=== PATIENT | female | born 1950 | race Caucasian/White ===

== ENCOUNTER 2016-10-23 11:29 | Observation (INO) | payer OTHER ==
[~2016-10-23] VITALS: Ht 157.5 cm; Wt 68.2 kg
[~2016-10-23 11:29] MED LIST: ASCO500T16 PO; CYAN3INJ INJ; LOSA50TA6 PO; METH10CO2 PO; OMEG-21 PO; OMEP20CA9 PO; OXYC-59 PO; PARO10TA PO; VITA400C3 PO
[2016-10-23 11:35] VITALS: Ht 157.5 cm; Wt 68.2 kg
[2016-10-23] MEDS ORDERED: OXY/15 PO (11:52)
[2016-10-23] MEDS ORDERED: VALS-58 PO (11:52)
[2016-10-23] MEDS ORDERED: RANI150T2 PO (11:52)
--- NOTE | 2016-10-23 12:42 | EMERGENCY ROOM VISIT NOTE ---
History Report prepared by Brandon: Davin Coates Under the Supervision of: Dr. Eugene Palacio M.D. First contact with patient: 12:30 Chief Complaint: HYPERTENSION Stated Complaint: HYPERTENSION History of Present Illness The patient is a 66 year old female who presents to the Emergency Room with complaints of persistent hypertension for the past three days. The patient has a history of hypertension for which she takes Atenolol. She has noticed that it has been elevated and difficult to control for three days. The patient also complains of a headache. The patient notes that this morning she was having trouble lifting her left arm secondary to weakness. She also notes that there was a tingling sensation in the arm and it felt heavy. Her left arm is back at baseline. She denies any problems with the right arm or her legs. She has not had any problems ambulating. The patient called an ambulance this morning when she could not control her blood pressure. The patient denies any recent falls or trauma. She denies any history of strokes. She does however have a family history of stroke that led to deaths of her mother, father, and brother. She is not on any blood thinners. The patient denies fevers, chest pain, shortness of breath, urinary symptoms or incontinence. Source of History: patient Onset: three days Position: other (cardiovascular) Quality: other (hypertensive) Timing: other (persistent) Associated Symptoms: + headache, + numbness, + weakness, No SOB, No chest pain, No fevers, No urinary symptoms Review of Systems See HPI for pertinent positives & negatives. A total of 10 systems reviewed and were otherwise negative. Past Medical & Surgical Medical Problems: (1) Chronic neck pain (2) Dyslipidemia (3) GERD (gastroesophageal reflux disease) (4) HTN (hypertension) (5) Panic disorder Surgical Problems: (1) History of appendectomy (2) History of carpal tunnel surgery (3) History of cholecystectomy (4) History of hysterectomy (5) S/P cervical spinal fusion Family History Cancer Hypertension Stroke Social History Smoking Status: Former Smoker Alcohol Use: none Marital Status: Housing Status: lives alone Occupation Status: unemployed Current/Historical Medications Scheduled Ascorbic Acid (Ascorbic Acid), 500 MG PO DAILY Atenolol (Tenormin), 50 MG PO BID Cholecalciferol (Vitamin D3), 1 TAB PO DAILY Cyanocobalamin (Vitamin B12 500MCG), 500 MCG PO DAILY [place]-3 Fatty Acids (Fish Oil), 1 CAP PO DAILY Omeprazole (Prilosec), 40 MG PO DAILY Paroxetine Hcl (Paxil), 10 MG PO DAILY Valsartan (Valsartan), 160 MG PO DAILY Vitamin E (Vitamin E 400 Iu), 400 INTER.UNIT PO DAILY Scheduled PRN Oxycodone/Acetaminophen 10MG/325MG (Percocet 10MG/325MG), 1 TAB PO Q6H PRN for Pain Allergies Coded Allergies: Propoxyphene (Verified Allergy, Intermediate, TACHYCARDIA, 10/23/16) Physical Exam Vital Signs Date Time Temp Pulse Resp B/P Pulse Ox O2 Delivery O2 Flow Rate FiO2 10/23/16 16:48 95 20 154/74 94 Room Air 10/23/16 16:06 50 10/23/16 13:46 55 18 159/59 97 Room Air 10/23/16 12:07 97 Room Air 10/23/16 11:52 53 10/23/16 11:35 36.7 54 18 159/40 97 Room Air Physical Exam GENERAL: Patient is well appearing and in no acute distress. HEENT: No acute trauma, normocephalic atraumatic, mucous membranes moist, no nasal congestion, no scleral icterus. NECK: No stridor, no adenopathy, no meningismus, trachea is midline. LUNGS: No dyspnea. Clear to auscultation and equal bilaterally. No wheeze, no rhonchi. HEART: Regular rate and rhythm. No murmurs, rubs, gallops appreciated. ABDOMEN: Soft, nontender, bowel sounds positive, no masses appreciated, no peritonitis. BACK: No midline tenderness, no CVA tenderness EXTREMITIES: Normal motion all extremities, no cyanosis, no edema. NEUROLOGIC: Alert and oriented, no acute motor or sensory deficits, no focal weakness, cranial nerves grossly intact. SKIN: No rash, no jaundice, no diaphoresis. Medical Decision & Procedures ER Provider Diagnostic Interpretation: Radiology results and stated below per my review and radiologist interpretation: CHEST ONE VIEW PORTABLE CLINICAL HISTORY: HTN dyspnea COMPARISON STUDY: 04/28/2015 FINDINGS: The bones soft tissues and hemidiaphragms are normal. The cardiomediastinal silhouette is normal. The lungs are clear. The pulmonary vasculature is normal. IMPRESSION: Negative chest. Electronically signed by: Eliezer Carrington M.D. 10/23/2016 1:05 PM Dictated Date/Time: 10/23/2016 1:[address]AST CT DOSE: 537.48 mGy.cm HISTORY: Hypertension HTN, left arm paresthesia TECHNIQUE: Multiaxial CT images of the head were performed without the use of intravenous contrast. Comparison: None. Findings: The paranasal sinuses and mastoid air cells are clear. The calvarium and skull base are intact. The ventricles and sulci are within normal limits. There is no mass, hematoma, midline shift, or acute infarct. Impression: No acute intracranial abnormality. Electronically signed by: Eliezer Carrington M.D. 10/23/2016 1:47 PM Dictated Date/Time: 10/23/2016 1:42 PM Laboratory Results Test 10/23/16 12:40 10/23/16 13:17 Prothrombin Time 10.7 SECONDS (9.0-12.0) Prothromb Time International Ratio 1.0 (0.9-1.1) Activated Partial Thromboplast Time 27.1 SECONDS (21.0-31.0) Partial Thromboplastin Ratio 1.0 Estimated Average Glucose 120 mg/dl Hemoglobin A1c 5.8 % (4.5-5.6) Magnesium Level 2.0 mg/dl (1.8-2.4) Total Bilirubin 0.3 mg/dl (0.2-1) Aspartate Amino Transf (AST/SGOT) 17 U/L (15-37) Alanine Aminotransferase (ALT/SGPT) 19 U/L (12-78) Alkaline Phosphatase 86 U/L (45-117) Total Creatine Kinase 74 U/L (26-192) Creatine Kinase MB 1.3 ng/ml (0.5-3.6) Creatine Kinase MB Ratio 1.8 (0-3.0) Troponin I < 0.015 ng/ml (0-0.045) Total Protein 7.5 gm/dl (6.4-8.2) Albumin 3.7 gm/dl (3.4-5.0) Globulin 3.8 gm/dl (2.5-4.0) Albumin/Globulin Ratio 1.0 (0.9-2) Bedside Troponin I 0.000 ng/ml (0-0.045) Laboratory results as reviewed by me. Medications Administered Medications (Trade) Dose Ordered Sig/Silverio Route Start Time Stop Time Status Last Admin Dose Admin Acetaminophen (Tylenol Tab) 1,000 mg NOW STAT PO 10/23/16 13:58 10/23/16 13:59 DC 10/23/16 15:13 1,000 MG ECG Indication: weakness Rate (beats per minute): 53 Rhythm: sinus bradycardia Findings: no acute ischemic change, no ectopy ED Course 1231: The patient was evaluated in room B7. A complete history and physical exam was performed. 1350: The patient requested something for a headache. 1355: Updated the patient. She is willing to stay to rule out stroke. 1358: Tylenol 1000 mg PO. 1401: Spoke with Louise De Jesus PA-C, [facility]. The patient will be evaluated. 1422: The patient wants to go home. I discussed the risks of leaving AMA with her. She verbalized understanding. 1435: The patient now decided that she will stay Medical Decision Differential: Benign Hypertension, Hypertensive Urgency/Emergency, Cardiovascular Pathology, Endocrine, Metabolic/Electrolyte, Renal Disease, End- organ Damage, amongst other pathologies entertained. 66 yr old female arrives with complaint of hypertension, headache, left arm numbness and earlier today inability to use left arm correctly. Hypertensive here but not severely and patient is stable. She has essentially normal work- up. Her description of left arm weakness with the history multiple family members dieing of stroke makes me quite concerned. Initially patient agreeable to coming in for further evaluation, then changed her mind deciding to go home. Discussed AMA and risks and she understands. Shortly there-after patient changed her mind again and willing to come in for further evaluation. Stable, no distress, labs unremarkable, ct head negative, EKG ok, and no neuro deficits. Did have headache and thus given Tylenol. She does not have evidence of meningitis. Bring in for further work up though I feel low risk dissection. Consults Time Called: 1355 Consulting Physician: Louise De Jesus PA-C, [facility]. Returned Call: [phone]: Spoke with Louise De Jesus PA-C, [facility]. The patient will be evaluated. Impression Primary Impression: Hypertension Additional Impressions: Headache Left arm weakness Scribe Attestation The scribe's documentation has been prepared under my direction and personally reviewed by me in its entirety. I confirm that the note above accurately reflects all work, treatment, procedures, and medical decision making performed by me. Departure Information Dispostion Being Evaluated By Hospitalist Cathy Tavares M.D. (PCP) Patient Instructions My [facility] Health Problem Qualifiers Primary Impression: Hypertension Hypertension type: unspecified secondary hypertension Qualified Codes: I15.9 - Secondary hypertension, unspecified Additional Impressions: Headache Headache type: unspecified Headache chronicity pattern: acute headache Intractability: not intractable Qualified Codes: R51 - Headache
[2016-10-23 12:55] LABS: HEMATOCRIT 39.8 % (37-47); MEAN CELL VOLUME 86.5 fL (80-100); MEAN CORPUSCULAR HEMOGLOBIN 30.9 pg (25-34); MEAN CORPUSCULAR HGB CONC 35.7 g/dl (32-36); MEAN PLATELET VOLUME 9.3 fL (7.4-10.4); PLATELET COUNT 235 K/uL (130-400); WHITE BLOOD COUNT 9.49 K/uL (4.8-10.8)
--- NOTE | 2016-10-23 13:06 | DIAGNOSTIC IMAGING REPORT ---
CHEST ONE VIEW PORTABLE CLINICAL HISTORY: HTN dyspnea COMPARISON STUDY: 04/28/2015 FINDINGS: The bones soft tissues and hemidiaphragms are normal. The cardiomediastinal silhouette is normal. The lungs are clear. The pulmonary vasculature is normal. IMPRESSION: Negative chest. Electronically signed by: Eliezer Carrington M.D. 10/23/2016 1:05 PM Dictated Date/Time: 10/23/2016 1:04 PM
[2016-10-23 13:12] LABS: PROTHROMBIN TIME (PATIENT) 10.7 SECONDS (9.0-12.0)
[2016-10-23 13:18] LABS: ALT/SGPT 19 U/L (12-78); BLOOD UREA NITROGEN 10 mg/dl (7-18); CALCIUM 8.7 mg/dl (8.5-10.1); CARBON DIOXIDE 30 mmol/L (21-32); CHLORIDE 104 mmol/L (98-107); CREATININE 0.83 mg/dl (0.60-1.20); GLUCOSE 101 mg/dl (70-99); SODIUM 141 mmol/L (136-145)
[2016-10-23 13:23] LABS: ALKALINE PHOSPHATASE 86 U/L (45-117); AST/SGOT 17 U/L (15-37); CKMB/CK RATIO 1.8 (0-3.0)
--- NOTE | 2016-10-23 13:49 | DIAGNOSTIC IMAGING REPORT ---
HEAD CT NONCONTRAST CT DOSE: 537.48 mGy.cm HISTORY: Hypertension HTN, left arm paresthesia TECHNIQUE: Multiaxial CT images of the head were performed without the use of intravenous contrast. Comparison: None. Findings: The paranasal sinuses and mastoid air cells are clear. The calvarium and skull base are intact. The ventricles and sulci are within normal limits. There is no mass, hematoma, midline shift, or acute infarct. Impression: No acute intracranial abnormality. Electronically signed by: Eliezer Carrington M.D. 10/23/2016 1:47 PM Dictated Date/Time: 10/23/2016 1:42 PM
[2016-10-23] MEDS ORDERED: ACETAMINOPHEN 500 MG TAB PO STA (13:58)
[2016-10-23] MEDS ORDERED: ASPIRIN 81 MG CHEW PO STA (17:44)
[2016-10-23] MEDS ORDERED: PHARMACIST DISCHARGE MED REC CONSULT PRN (17:45)
[2016-10-23] MEDS ORDERED: NITROGLYCERIN 0.4 MG SL PER TAB CHARGE SL PRN (17:45)
[2016-10-23] MEDS ORDERED: ONDANSETRON INJ 2 MG/ML 2 ML VIAL IV PRN (17:45)
[2016-10-23] MEDS ORDERED: ACETAMINOPHEN 325 MG TAB PO PRN (17:45)
[2016-10-23] MEDS ORDERED: CYAN500T13 PO (17:54)
[2016-10-23] MEDS ORDERED: CHOL1000 PO (17:54)
[2016-10-23] MEDS ORDERED: OXYC-59 PO (17:54)
[2016-10-23] MEDS ORDERED: ATEN50TA PO (17:54)
[2016-10-23] MEDS ORDERED: IV FLUIDS COMPLETED PRN (18:00)
--- NOTE | 2016-10-23 18:30 | History and Physical ---
History & Physical Date & Time of Service: Oct 23, 2016 at 18:01 Chief Complaint: Hypertension Primary Care Physician: Cathy Gardiner M.D. History of Present Illness Source: patient This is a 66 y/o female with PMHx of HTN, Dyslipidemia and other problems as outlined below who presents to the ED c/o elevated BP for couple weeks. Pt reports that over the past couple weeks her BP has been elevated. Pt has a history of HTN. She had been taking atenolol 25 mg daily and losartan 50 mg daily however last week her PCP increased her atenolol to 50mg BID, discontinued her losartan and started valsartan 160mg daily. Pt states that her blood pressure has not been under control since she started the new regimen. The highest reading she recorded was 220/160 last night. This morning her BP was still 220/140. She began experiencing hot flashes, diaphoresis, SANCHEZ ( occipital) and blurred vision. Around 0930, pt developed acute onset L arm weakness and "heaviness" with some numbness in her fingers. Sxs were assoc with difficulty swallowing and the L side of her face feeling "heavy" but she is not sure if she had any facial droop. These sxs persisted for a few minutes before resolving completely. Pt mentions that she has chronic neck pain and frequently experiences paresthesias and referred pain to the L arm however this was different. Pt has no personal history of CVA however she has a strong family history of CVA. Her father and brother both of strokes at 55 and 40 respectively. Mother had multiple TIAs. Pt currently lives at home alone. Pt denies diplopia, chest pain, SOB, wheezing, abd pain, N/V, bowel or bladder issues, LE edema, calf pain, lightheadedness/dizziness, difficulty speaking or difficulty ambulating. In the ED, BP is elevated. Labs reviewed are unremarkable. CT head and CXR are negative. Pt is currently feeling back to her baseline. She will be admitted for further evaluation and treatment. Past Medical/Surgical History Medical Problems: (1) Chronic neck pain Status: Chronic (2) Dyslipidemia Status: Chronic (3) GERD (gastroesophageal reflux disease) Status: Chronic (4) HTN (hypertension) Status: Chronic (5) Panic disorder Status: Chronic Surgical Problems: (1) History of appendectomy Status: Resolved (2) History of carpal tunnel surgery Status: Resolved (3) History of cholecystectomy Status: Resolved (4) History of hysterectomy Status: Resolved (5) S/P cervical spinal fusion Status: Resolved Family History Cancer Hypertension Stroke Social History Smoking Status: Former Smoker (15 pack year history; quit 20 years ago) Alcohol Use: none Drug Use: none Marital Status: Housing status: lives alone Occupational Status: unemployed Immunizations History of Influenza Vaccine: No Influenza Vaccine Date: May 22, 2012 History of Tetanus Vaccine?: Unknown History of Pneumococcal: Yes Pneumococcal Date: May 21, 2010 History of Hepatitis B Vaccine: No Multi-Drug Resistant Organisms History of MDRO: No Allergies Coded Allergies: Propoxyphene (Verified Allergy, Intermediate, TACHYCARDIA, 10/23/16) Home Medications Scheduled Ascorbic Acid (Ascorbic Acid), 500 MG PO DAILY Atenolol (Tenormin), 50 MG PO BID Cholecalciferol (Vitamin D3), 1 TAB PO DAILY Cyanocobalamin (Vitamin B12 500MCG), 500 MCG PO DAILY [place]-3 Fatty Acids (Fish Oil), 1 CAP PO DAILY Omeprazole (Prilosec), 40 MG PO DAILY Paroxetine Hcl (Paxil), 10 MG PO DAILY Valsartan (Valsartan), 160 MG PO DAILY Vitamin E (Vitamin E 400 Iu), 400 INTER.UNIT PO DAILY Scheduled PRN Oxycodone/Acetaminophen 10MG/325MG (Percocet 10MG/325MG), 1 TAB PO Q6H PRN for Pain Review of Systems Constitutional: + sweats, No chills, No fatigue, No fever, No weakness Eyes: + worsening of vision (blurred: resolved), No diplopia ENT: No hearing loss Respiratory: No cough, No shortness of breath Cardiovascular: No chest pain, No claudication, No edema, No palpitations Abdomen: No constipation, No diarrhea, No nausea, No pain, No vomiting Musculoskeletal: No calf pain Genitourinary - Female: No dysuria Neurologic: + numbness/tingling (L arm), + weakness (L arm weakness) Psychiatric: No depression symptoms Endocrine: No fatigue Hematologic / Lymphatic: No abnormal bleeding/bruising Integumentary: No new/changing skin lesions Physical Exam Vital Signs Date Time Temp Pulse Resp B/P Pulse Ox O2 Delivery O2 Flow Rate FiO2 10/23/16 16:48 95 20 154/74 94 Room Air 10/23/16 16:06 50 10/23/16 13:46 55 18 159/59 97 Room Air 10/23/16 12:07 97 Room Air 10/23/16 11:52 53 10/23/16 11:35 36.7 54 18 159/40 97 Room Air General Appearance: WD/WN, no apparent distress, + pertinent finding (Pt is sitting up comfortably in bed ) Head: normocephalic, atraumatic Eyes: normal inspection, PERRL, EOMI, + pertinent finding (attempted fundoscopic exam; limited view of R eye appeared normal; L eye unable to visualize fundus) ENT: hearing grossly normal Neck: supple, no carotid bruits Respiratory/Chest: chest non-tender, lungs clear, normal breath sounds, no respiratory distress Cardiovascular: regular rate, rhythm, no edema, no murmur Abdomen/GI: normal bowel sounds, non tender, soft Back: normal inspection Extremities/Musculoskelatal: normal inspection, no calf tenderness, no pedal edema Neurologic/Psych: radio mechanic helper II-XII nml as tested, no motor/sensory deficits, alert, normal mood/affect, oriented x 3 Skin: normal color, warm/dry Diagnostics Laboratory Results Results Past 24 Hours Test 10/23/16 12:40 10/23/16 13:17 10/23/16 17:44 Range/Units White Blood Count 9.49 4.8-10.8 K/uL Red Blood Count 4.60 4.2-5.4 M/uL Hemoglobin 14.2 12.0-16.0 g/dL Hematocrit 39.8 37-47 % Mean Corpuscular Volume 86.5 80-100 fL Mean Corpuscular Hemoglobin 30.9 25-34 pg Mean Corpuscular Hemoglobin Concent 35.7 32-36 g/dl RDW Standard Deviation 39.1 36.4-46.3 fL RDW Coefficient of Variation 12.4 11.5-14.5 % Platelet Count 235 130-400 K/uL Mean Platelet Volume 9.3 7.4-10.4 fL Prothrombin Time 10.7 9.0-12.0 SECONDS Prothromb Time International Ratio 1.0 0.9-1.1 Activated Partial Thromboplast Time 27.1 21.0-31.0 SECONDS Partial Thromboplastin Ratio 1.0 Sodium Level 141 136-145 mmol/L Potassium Level 4.0 3.5-5.1 mmol/L Chloride Level 104 98-107 mmol/L Carbon Dioxide Level 30 21-32 mmol/L Anion Gap 7.0 3-11 mmol/L Blood Urea Nitrogen 10 7-18 mg/dl Creatinine 0.83 0.60-1.20 mg/dl Est Creatinine Clear Calc Drug Dose 61.5 ml/min Estimated GFR () 85.8 Estimated GFR (Non- 74.0 BUN/Creatinine Ratio 12.0 10-20 Random Glucose 101 70-99 mg/dl Calcium Level 8.7 8.5-10.1 mg/dl Magnesium Level 2.0 1.8-2.4 mg/dl Total Bilirubin 0.3 0.2-1 mg/dl Aspartate Amino Transf (AST/SGOT) 17 15-37 U/L Alanine Aminotransferase (ALT/SGPT) 19 12-78 U/L Alkaline Phosphatase 86 45-117 U/L Total Creatine Kinase 74 26-192 U/L Creatine Kinase MB 1.3 0.5-3.6 ng/ml Creatine Kinase MB Ratio 1.8 0-3.0 Troponin I < 0.015 0-0.045 ng/ml Total Protein 7.5 6.4-8.2 gm/dl Albumin 3.7 3.4-5.0 gm/dl Globulin 3.8 2.5-4.0 gm/dl Albumin/Globulin Ratio 1.0 0.9-2 Bedside Troponin I 0.000 0-0.045 ng/ml Diagnostic Radiology CXR IMPRESSION: Negative chest. CT HEAD IMPRESSION: No acute intracranial abnormality. EKG EKG: sinus gillian at 53 bpm with sinus arrhythmia; no change when compared to EKG from 05/31/16 Impression Assessment and Plan L ARM WEAKNESS (RESOLVED) LIKELY TIA; R/O CVA pt presented with L arm weakness/"heaviness" assoc with elevated BPs -admit observation to telemetry -RFs include strong FmHx, uncontrolled HTN, Dyslipidemia and prior tobacco use -head CT is negative; obtain brain MRI and MRA head and neck for further evaluation -obtain echo to r/o any cardiac abnormalities -neuro checks q4h -fasting lipids in AM -start ASA -pt is not a candidate for Tpa as sxs resolved prior to arrival -PT/OT -consult speech to evaluate swallowing -consult neuro, Dr. Manasa Toscano-pending input -allow for permissive HTN in setting of possible CVA -continue to monitor UNCONTROLLED HTN -pt reports BP ~220/160 at home; BP 150s/70s in ED -discontinue atenolol and valsartan -start HCTZ-losartan and amlodipine -monitor DYSLIPIDEMIA -check fasting lipids in AM -cont fish oil GERD -cont PPI CHRONIC CERVICAL PAIN -s/p cervical fusion -cont Percocet PRN ANXIETY -pt reports feeling more anxious recently ( no new stressors) -cont Paxil -f/u outpatient DVT PROPHYLAXIS -subq Lovenox CODE STATUS -FULL CODE status per discussion with patient upon admission DISPO Pt was seen in collaboration with Dr. Hartman. Please see her addendum for further details. Thanks! -Of note: patient will be followed by Dr. Martinez starting tomorrow AM. I have seen, examined and discussed this patient with Louise De Jesus and I agree with the above note. Patient presented after episode of L arm weakness earlier today. Symptoms completely resolved prior to arrival. Vitals notable for elevated blood pressure and bradycardia. PE: General- awake; alert; NAD Eyes- EOMI; no scleral icterus ENT- dentures Neck- no stridor; trachea midline; posterior well healed surgical scar Lungs- CTA bilaterally; no wheezes/crackles Heart- RRR; no m/r/g Abdomen- soft; NTND; nBS Back- no gross abnormalities Extremities- no c/c/e; no deformity Neuro- strength 5/5 bilateral UE and LE; sensation to light touch grossly intact and equal throughout; no pronator drift; cn ii-xii grossly intact Skin- no appreciable rash or bruise Labs, imaging and EKG reviewed. TIA vs CVA: Patient with episode of resolved L arm weakness. CT head negative. Patient started on aspirin (does not take as outpatient). Start atorvastatin. MRI brain and MRA head/neck pending. TTE pending. Neurology consult. HTN: Stop atenolol (given relative bradycardia) and valsartan. Start HCTZ- losartan (patient had been on losartan previously) and given dose of HCTZ tonight. Start amlodipine. Anxiety/panic attacks: Consult psychiatry. Agree with remainder of plan as outlined above. VTE Prophylaxis VTE Risk Assessment Done? Y/N: Yes Risk Level: Moderate
[2016-10-23 18:40] VITALS: BP 179/93; PULSE 52; TEMP 36.9; O2SAT 96
[2016-10-23] MEDS ORDERED: HYDROCHLOROTHIAZIDE 25 MG TAB PO STA (19:25)
[2016-10-23] MEDS: ATORVASTATIN 40 MG TAB PO SCH (19:52)
[2016-10-23] MEDS ORDERED: LORAZEPAM 2 MG/ML 1 ML VIAL IV PRN (20:00)
[2016-10-23] MEDS: ENOXAPARIN 40 MG/0.4 ML SYR SC SCH (21:00)
[2016-10-23] MEDS ORDERED: GADAVIST IV PRN (21:30)
--- NOTE | 2016-10-23 21:44 | DIAGNOSTIC IMAGING REPORT ---
MRA OF THE NECK WITH AND WITHOUT CONTRAST CLINICAL HISTORY: Stroke. Hypertension. COMPARISON STUDY: None. TECHNIQUE: Unenhanced and contrast-enhanced MRA of the neck was performed. Injection of 7 mL of Gadavist IV was uneventful. NASCET criteria were utilized to estimate the degree of carotid stenosis. FINDINGS: The bilateral common carotid and internal carotid arteries are patent. There is no significant stenosis of these vessels. No dissection is identified within these vessels. The left vertebral artery is dominant and patent. The right vertebral artery is diminutive and not well evaluated on this examination. IMPRESSION: 1. No significant stenosis within the bilateral internal carotid and common carotid arteries. 2. Dominant, patent left vertebral artery. 3. Diminutive right vertebral artery which is not well evaluated on this exam. Electronically signed by: Kiet Grullon M.D. 10/23/2016 9:43 PM Dictated Date/Time: 10/23/2016 9:39 PM
--- NOTE | 2016-10-23 22:00 | DIAGNOSTIC IMAGING REPORT ---
MRI OF THE BRAIN WITHOUT AND WITH IV CONTRAST CLINICAL HISTORY: Hypertension. Evaluate for stroke. COMPARISON STUDY: Head CT October 13, 2016 and October 06, 2014 TECHNIQUE: Utilizing a 1.5 Alyssa magnet and dedicated coil, multiplanar, multiecho imaging of the brain was performed pre and postcontrast administration. IV administration of 7 mL of Gadavist contrast was uneventful. FINDINGS: This exam is mildly compromised by motion artifact. There are no areas of restricted diffusion. No acute intracranial hemorrhage, midline shift or mass effect is present. Ventricular system is normal. Basilar cisterns are patent. There are no extra-axial collections. There is a partially empty sella. No intracranial mass or pathologic enhancement is present. Flow-voids for the major intracranial vessels are present. No areas of significant signal abnormality are identified. Orbits and sinuses are unremarkable. IMPRESSION: 1. No acute intracranial findings. 2. Study mildly compromised by motion artifact. 3. Unremarkable MRI of the brain for age. Electronically signed by: Kiet Grullon M.D. 10/23/2016 9:59 PM Dictated Date/Time: 10/23/2016 9:55 PM
--- NOTE | 2016-10-23 22:00 | DIAGNOSTIC IMAGING REPORT ---
MRA OF THE INTRACRANIAL CIRCULATION WITHOUT CONTRAST CLINICAL HISTORY: Stroke. Hypertension. COMPARISON STUDY: None. TECHNIQUE: Utilizing a 1.5 Alyssa magnet and 3-D [id number] technique, unenhanced MRA of the intracranial circulation was obtained. FINDINGS: The bilateral M1, M2, A1 and A2 segments are patent. No intracranial aneurysm is identified although sensitivity for detection of small aneurysms is diminished on this exam. There is no abrupt vessel cut off. The left vertebral artery is dominant. Posterior circulation appears intact. IMPRESSION: Unremarkable MRA of the intracranial circulation. Electronically signed by: Kiet Grullon M.D. 10/23/2016 9:59 PM Dictated Date/Time: 10/23/2016 8:58 PM
[2016-10-23] MEDS: OXYCODONE/ACETAMINOPHEN 10/325MG TAB PO PRN (22:02)
[2016-10-24] VITALS (9 sets, daily range): BP systolic 112–155; BP diastolic 53–74; PULSE 50–62; TEMP 36.5–36.9; O2SAT 92–98
[2016-10-24 05:48] LABS: HEMATOCRIT 42.2 % (37-47); MEAN CELL VOLUME 86.1 fL (80-100); MEAN PLATELET VOLUME 9.5 fL (7.4-10.4); PLATELET COUNT 213 K/uL (130-400); WHITE BLOOD COUNT 8.79 K/uL (4.8-10.8)
[2016-10-24] MEDS: OXYCODONE/ACETAMINOPHEN 10/325MG TAB PO PRN ×3 (06:12→19:08)
[2016-10-24 06:36] LABS: CALCIUM 8.9 mg/dl (8.5-10.1); CHOLESTEROL/HDL RATIO 6.4; CREATININE 0.87 mg/dl (0.60-1.20); POTASSIUM 4.3 mmol/L (3.5-5.1)
[2016-10-24 07:52] LABS: ESTIMATED AVERAGE GLUCOSE 120 mg/dl; HA1C FLAG Normal (Normal)
[2016-10-24] MEDS: OMEGA-3 (PURIFIED FISH OIL) 1 GM CAP PO SCH (08:28)
[2016-10-24] MEDS: TOCOPHERYL, DL-ALPHA 400 INTER.UNIT CAP PO SCH (08:28)
[2016-10-24] MEDS: PAROXETINE 20 MG TAB PO SCH (08:28)
[2016-10-24] MEDS: ASPIRIN 81 MG ECTAB PO SCH (08:28)
[2016-10-24] MEDS: PANTOprazole SOD 40 MG TAB PO SCH (08:29)
[2016-10-24] MEDS: ASCORBIC ACID 500 MG TAB PO SCH (08:29)
[2016-10-24] MEDS: LOSARTAN/HCTZ 50-12.5 EA TAB PO SCH (08:30)
[2016-10-24] MEDS: AMLODIPINE BESYLATE 5 MG TAB PO SCH (08:30)
[2016-10-24] MEDS ORDERED: VALSARTAN 80 MG TAB PO SCH (09:00)
[2016-10-24] MEDS: CYANOCOBALAMIN 500 MCG TAB (VIT B-12) PO SCH (09:20)
[2016-10-24] MEDS: CHOLECALCIFEROL 1000 INTER.UNIT TAB PO SCH (09:20)
--- NOTE | 2016-10-24 14:05 | ECHOCARDIOGRAM REPORT ---
*NOTICE TO RECEIVING [facility] [employer] This information is strictly Confidential and protected under [place] law. [place] law prohibits you from making any further disclosure of this information unless further disclosure is expressly permitted by the written consent of the person to whom it pertains or is authorized by law. A general authorization for the release of medical or other information is not sufficient for this purpose. Hospital accepts no responsibility if the information is made available to any other person, INCLUDING THE PATIENT. Interpretation Summary * Name: DOLORES YUAN Study Date: 10/24/2016 11:15 AM BP: 132/63 mmHg * Patient Location: .2T\S\S231\S\1 HR: 53 * : 1950 (M/d/yyyy) Gender: Female Height: 62 in * Age: 66 yrs Ethnicity: CA Weight: 152 lb * Ordering Physician: Louise Angelo * Performed By: Lizett Honeycutt * * Reason For Study: STROKE LIKE SXS * BSA: 1.7 m2 * -- Conclusions -- * The left ventricle is normal in size. * There is moderate concentric left ventricular hypertrophy. * The left ventricular wall motion is normal. * Ejection Fraction = 65-70%. * The right ventricular systolic function is normal. * The interatrial septum is intact with no evidence for an atrial septal defect. * Injection of contrast documented no interatrial shunt. * No significant valvular disease. Procedure Details * A complete two-dimensional transthoracic echocardiogram was performed (2D, M-mode, Doppler and color flow Doppler). * A saline contrast injection was performed to assess for cardiac shunting. * The injection was performed through an intravenous line in the right arm. * The attending nurse who injected the saline contrast was KAROLINE VENEGAS RN. * A total of 20 cc of agitated saline was given. Left Ventricle * The left ventricle is normal in size. * There is moderate concentric left ventricular hypertrophy. * Ejection Fraction = 65-70%. * The left ventricular wall motion is normal. Right Ventricle * The right ventricle is normal size. * The right ventricular systolic function is normal. Atria * The left atrial size is normal. * Right atrial size is normal. * The interatrial septum is intact with no evidence for an atrial septal defect. * Injection of contrast documented no interatrial shunt. Mitral Valve * The mitral valve anatomy is normal. * Significant mitral regurgitation is absent. Tricuspid Valve * The tricuspid valve is not well visualized, but is grossly normal. * Significant tricuspid regurgitation is absent. Aortic Valve * The aortic valve is tricuspid. The leaflet thickness if normal. There is no aortic stenosis, and no significant insufficiency. * No hemodynamically significant valvular aortic stenosis. * There is no significant aortic regurgitation. Pulmonic Valve * The pulmonic valve is not well visualized. * There is no significant pulmonary regurgitation. Great Vessels * The aortic root and proximal ascending aorta are normal sized. Pericardium/Pleural * There is no pericardial effusion. MMode 2D Measurements and Calculations IVSd 1.3 cm IVSs 2.0 cm LVIDd 4.7 cm LVIDs 2.9 cm LVPWd 1.2 cm LVPWs 2.1 cm IVS/LVPW 1.1 FS 37.8 % EDV(Teich) 103.3 ml ESV(Teich) 33.1 ml EF(Teich) 67.9 % EDV(cubed) 105.0 ml ESV(cubed) 25.2 ml EF(cubed) 76.0 % % IVS thick 47.1 % % LVPW thick 67.4 % LV mass(C)d 236.0 grams LV mass(C)dI 138.7 grams/m\S\2 LV mass(C)s 262.0 grams LV mass(C)sI 154.0 grams/m\S\2 CO(Teich) 3.9 l/min CI(Teich) 2.3 l/min/m\S\2 SV(Teich) 70.2 ml SI(Teich) 41.2 ml/m\S\2 CO(cubed) 4.4 l/min CI(cubed) 2.6 l/min/m\S\2 SV(cubed) 79.8 ml SI(cubed) 46.9 ml/m\S\2 ACS 1.2 cm LA dimension 4.1 cm asc Aorta Diam 3.3 cm LVOT diam 1.6 cm LVOT area 2.0 cm\S\2 LVAd ap4 18.7 cm\S\2 LVLd ap4 6.5 cm EDV(MOD-sp4) 44.5 ml LVAs ap4 9.2 cm\S\2 LVLs ap4 5.1 cm ESV(MOD-sp4) 14.1 ml EF(MOD-sp4) 68.3 % LVAd ap2 18.9 cm\S\2 LVLd ap2 6.2 cm EDV(MOD-sp2) 49.6 ml LVAs ap2 9.5 cm\S\2 LVLs ap2 5.0 cm ESV(MOD-sp2) 15.5 ml EF(MOD-sp2) 68.8 % CO(MOD-sp4) 1.7 l/min CI(MOD-sp4) 0.98 l/min/m\S\2 SV(MOD-sp4) 30.4 ml SI(MOD-sp4) 17.9 ml/m\S\2 CO(MOD-sp2) 1.9 l/min CI(MOD-sp2) 1.1 l/min/m\S\2 SV(MOD-sp2) 34.1 ml SI(MOD-sp2) 20.0 ml/m\S\2 Doppler Measurements and Calculations MV E max oksana 85.4 cm/sec MV A max oksana 82.0 cm/sec MV E/A 1.0 MV dec time 0.25 sec Ao V2 max 157.1 cm/sec Ao max PG 9.9 mmHg Ao max PG (full) 4.9 mmHg CADEN(V,A) 1.4 cm\S\2 CADEN(V,D) 1.4 cm\S\2 LV V1 max PG 4.9 mmHg LV V1 max 111.1 cm/sec PA V2 max 72.8 cm/sec PA max PG 2.1 mmHg
--- NOTE | 2016-10-24 14:13 | Neurology Consultation ---
Neurology Consultation Date of Consultation: Oct 24, 2016. Attending Physician: Berry Martinez MD Primary Care Physician: Cathy Gardiner M.D. Reason for Consultation: TIA History of Present Illness Source: patient Svetlana is a 66 year old female with PMH of HTN, Dyslipidemia, panic attacks. She states her blood pressure has been elevated and her doctor just increased her does of atenolol 25 mg daily to 50 mg BID and losartan 50 mg to valsartan 160 mg daily. She states that her blood pressure has not been under control since she started the new regimen. She has been monitoring it for the past 3 days and it was 220/160 last night. This morning her BP was still 220/140. She called her daughter when he arm went numb and she couldn't lift it. She also took another atenolol after the arm symptoms started. For weeks she has had hot flashes, diaphoresis, SANCHEZ (occipital) and blurred vision. She also had some difficulty swallowing and the side of her face felt funny but she states this sometimes happens during her anxiety attacks. She does have chronic neck pain and paresthesias in her L arm however the heavy feeling was new. She has never had a CVA but there is a strong family history of CVA. Her father and brother both of strokes at 55 and 40 respectively. Mother had multiple TIAs. She lives alone but she called her friend to come help with her blood pressure and she didn't notice any facial droop or slurred speech. She did have her call 911. She was not previously on aspirin. denies CP, SOB, abdominal pain, weakness , numbness tingling, N, V, vision changes current headache. she does have an appointment with a water treatment plant mechanic for further evaluation of her heart. Past Medical/Surgical History Medical Problems: (1) Anxiety Status: Acute (2) Degenerative arthritis of cervical spine Status: Acute (3) Headache Status: Acute (4) Hypertension Status: Acute (5) Left arm weakness Status: Acute (6) Low back pain Status: Acute (7) Lymphadenopathy Status: Acute (8) Right lumbar radiculopathy Status: Acute Social History Smoking Status: Former smoker Alcohol Use: none Drug Use: none Marital Status: Housing Status: lives alone Occupation Status: unemployed Allergies Coded Allergies: Propoxyphene (Verified Allergy, Intermediate, TACHYCARDIA, 10/23/16) Current Inpatient Medications Current Inpatient Medications Medications (Trade) Dose Ordered Sig/Silverio Route Start Time Stop Time Status Last Admin Dose Admin Enoxaparin Sodium (Lovenox Inj) 40 mg Q24H SC 10/23/16 21:00 11/22/16 20:59 Acetaminophen (Tylenol Tab) 650 mg Q4H PRN PO 10/23/16 17:45 11/22/16 17:44 Ondansetron HCl (Zofran Inj) 4 mg Q6H PRN IV 10/23/16 17:45 11/22/16 17:44 Nitroglycerin (Nitrostat Tab) 0.4 mg UD PRN SL 10/23/16 17:45 11/22/16 17:44 Aspirin (Ecotrin Tab) 81 mg QAM PO 10/24/16 09:00 11/23/16 08:59 10/24/16 08:28 81 MG Miscellaneous Information (Pharmacist Discharge Med Rec Consult) 1 ea UD PRN N/A 10/23/16 17:45 11/22/16 17:44 Miscellaneous (Iv Fluids Completed) 1 ea PRN PRN N/A 10/23/16 18:00 10/23/17 17:59 Ascorbic Acid (Vitamin C Tab) 500 mg DAILY PO 10/24/16 09:00 11/23/16 08:59 10/24/16 08:29 500 MG Cholecalciferol (Vitamin D Tab) 1,000 inter.unit DAILY PO 10/24/16 09:00 11/23/16 08:59 10/24/16 09:20 1,000 INTER.UNIT Cyanocobalamin (Vitamin B-12 Tab) 500 mcg DAILY PO 10/24/16 09:00 11/23/16 08:59 10/24/16 09:20 500 MCG Oxycodone/ Acetaminophen (Percocet 10-325MG Tab) 1 tab Q6H PRN PO 10/23/16 18:00 11/06/16 17:59 10/24/16 12:53 1 TAB Paroxetine HCl (pAXil TAB) 10 mg DAILY PO 10/24/16 09:00 11/23/16 08:59 10/24/16 08:28 10 MG zb-Ihjjb-Clekrhxuzc Acetate (Vitamin E Cap) 400 interunit DAILY PO 10/24/16 09:00 11/23/16 08:59 10/24/16 08:28 400 INTERUNIT Fish Oil ([place]-3 (Purified Fish Oil) Cap) 1 gm DAILY PO 10/24/16 09:00 11/23/16 08:59 10/24/16 08:28 1 GM Pantoprazole Sodium (Protonix Tab) 40 mg DAILY PO 10/24/16 09:00 11/23/16 08:59 10/24/16 08:29 40 MG HCTZ/Losartan Potassium (Hyzaar 50-12.5 Tab) 1 tab QAM PO 10/24/16 09:00 11/23/16 08:59 10/24/16 08:30 1 TAB Amlodipine Besylate (Norvasc Tab) 5 mg QAM PO 10/24/16 09:00 11/23/16 08:59 10/24/16 08:30 5 MG Atorvastatin Calcium (Lipitor Tab) 40 mg QPM PO 10/23/16 21:00 11/22/16 20:59 10/23/16 19:52 40 MG Gadobutrol (Gadavist) 7 mmol UD PRN IV 10/23/16 21:30 10/27/16 21:29 Physical Exam Vital Signs (Past 24 Hrs): Date Time Temp Pulse Resp B/P Pulse Ox O2 Delivery O2 Flow Rate FiO2 10/24/16 12:29 Room Air 10/24/16 10:58 36.9 53 18 155/71 98 Room Air 10/24/16 08:26 60 10/24/16 07:40 36.6 56 18 154/74 94 Room Air 10/24/16 07:15 Room Air 10/24/16 04:02 36.6 52 18 132/63 95 Room Air 10/24/16 04:00 Room Air 10/24/16 00:09 36.5 50 18 129/56 95 Room Air 10/24/16 00:00 Room Air 10/23/16 20:00 Room Air 10/23/16 18:40 36.9 52 18 179/93 96 Room Air 10/23/16 18:40 36.9 52 18 179/93 96 Room Air 10/23/16 16:48 95 20 154/74 94 Room Air 10/23/16 16:06 50 Physical Exam: Constitutional: appearance nourished, healthy and normal Ears, Nose, Mouth and Throat: mucous membranes moist, no injection and skin normal, eyes normal Cardiovascular: normal S-1 and S-2 and regular rate and rhythm Respiratory: clear to auscultation (CTA) and no rales, rhonchi or wheeze Musculoskeletal: no peripheral edema and good distal pulses Skin: no stigmata of neurocutaneous disease noted and normal and intact Eyes: extraocular muscles intact (EOMI) and pupils equal, round and reactive to light (PERRL), miotic NEUROLOGIC EXAMINATION: Mental status: Alert and interactive Oriented to full date and location Oriented to person Speech fluent with no evidence of aphasia Cranial Nerves smile and eye brow raise symmetric, tongue midline Reflexes: Deep tendon reflexes were symmetrical and graded 2/5 brisk LE reflexes. Plantar responses were flexor. Sensory: decrease sensation in right LE ankle down to vibration and cool touch (old ankle fracture) Coordination: Romberg absent finger to nose without bi pass or tremor Gait/Stance: Posture normal. Gait normal: with steady with steps, base, turning, and tandem gait. Motor: Negative for pronator drift of out stretched arms with eyes closed. 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, hip flex 5/5/ bilaterally Laboratory Results Past 24 Hours: 10/24/16 05:23 10/24/16 05:23 Test 10/24/16 05:23 Red Blood Count 4.90 M/uL (4.2-5.4) Mean Corpuscular Volume 86.1 fL (80-100) Mean Corpuscular Hemoglobin 31.0 pg (25-34) Mean Corpuscular Hemoglobin Concent 36.0 g/dl (32-36) RDW Standard Deviation 39.7 fL (36.4-46.3) RDW Coefficient of Variation 12.5 % (11.5-14.5) Mean Platelet Volume 9.5 fL (7.4-10.4) Anion Gap 5.0 mmol/L (3-11) Est Creatinine Clear Calc Drug Dose 58.9 ml/min Estimated GFR () 81.0 Estimated GFR (Non- 69.9 BUN/Creatinine Ratio 16.0 (10-20) Calcium Level 8.9 mg/dl (8.5-10.1) Triglycerides Level 740 mg/dl (0-150) Cholesterol Level 249 mg/dl (0-200) HDL Cholesterol 39 mg/dl LDL Cholesterol, Calculated mg/dl VLDL Cholesterol, Calculated mg/dl Cholesterol/HDL Ratio 6.4 Chemistry Specimen Hemolysis Imaging CT head with no acute abnormalities MRA neck- No significant stenosis within the bilateral internal carotid and common carotid arteries. Dominant, patent left vertebral artery. . Diminutive right vertebral artery which is not well evaluated on this exam. MRA head- remarkable MRA of the intracranial circulation. MRI brain with and without contrast- No acute intracranial findings. Study mildly compromised by motion artifact. Unremarkable MRI of the brain for age. TTE * The left ventricle is normal in size. * There is moderate concentric left ventricular hypertrophy. * The left ventricular wall motion is normal. * Ejection Fraction = 65-70%. * The right ventricular systolic function is normal. * The interatrial septum is intact with no evidence for an atrial septal defect. * Injection of contrast documented no interatrial shunt. * No significant valvular disease. Impression 66 year old female with stroke like symptoms Plan 1. MRI with no evidence of acute findings 2. MRA no vascular abnormalities in head or neck 3. TTE within normal limited 4. would continue aspirin 81 mg and start Plavix 75 mg x 3 months and then stop plavix and continue aspirin 5. follow up with cardiology as scheduled- will need out patient monitoring with ZIO patch to r/o arrhythmias 6. optimize blood pressure and cholesterol management 7. all symptoms have resolved no PT/OT needs at this time follow up in neurology 3-4 weeks after discharge Manasa Cord[place] PAC schedule I have seen and discussed above patient with Dr Manasa Toscano, neurology Pt seen and examined, no neurologic deficit. Suspect TIA, rec antiplt as above. Rec cardionet or Ziopatch as outpt, risk factor modification including lipid lowering agents, gradual control of hypertension. Pt admits to incompletely controlled anxiety, agree with Psychiatry consult, JEREL Toscano MD
[2016-10-24] MEDS ORDERED: NURSING VERBAL MED ORDER ONE (16:00)
[2016-10-24] MEDS ORDERED: CLOPIDOGREL BISULFATE 75 MG TAB PO ONE ×2 (16:30→17:15)
[2016-10-24] MEDS ORDERED: ONDANSETRON 4 MG TAB PO PRN (17:45)
[2016-10-24] MEDS: DOCUSATE SODIUM 100 MG CAP PO SCH (17:50)
[2016-10-24] MEDS: ATORVASTATIN 40 MG TAB PO SCH (19:08)
[2016-10-24] MEDS ORDERED: LORAZEPAM 0.5 MG TAB PO ONE (20:30)
--- NOTE | 2016-10-24 20:30 | Progress Note ---
Medicine Progress Note Date & Time of Visit: Oct 24, 2016 at 20:26. Subjective patient seen sitting up in bed, comfortable states she feels improved compared to yesterday denies any focal neuro symptoms no chest pain, dyspnea, palpitations reports anxiety has been increasing lately, as well as tearfulness no other symptoms Objective Last 8 Hrs Date Time Temp Pulse Resp B/P Pulse Ox O2 Delivery O2 Flow Rate FiO2 10/24/16 19:34 36.7 62 18 118/66 93 Room Air 10/24/16 15:50 93 Room Air 10/24/16 15:15 36.8 57 20 128/72 93 Room Air 10/24/16 12:29 Room Air Physical Exam: General- oriented x 3, not in distress, speaks in sentences with no effort Eyes- anicteric ENT- oropharynx clear Neck- supple, no JVD Lungs- clear to auscultation b/l Heart- normal rate, regular rhythm; no murmurs Abdomen- normal bowel sounds, soft, nontender Extremities- no pretibial edema, no calf tenderness; peripheral pulses intact Neuro- alert, oriented x 3; no gross deficits Skin- warm & dry Laboratory Results: Last 24 Hours Test 10/24/16 05:23 White Blood Count 8.79 K/uL Red Blood Count 4.90 M/uL Hemoglobin 15.2 g/dL Hematocrit 42.2 % Mean Corpuscular Volume 86.1 fL Mean Corpuscular Hemoglobin 31.0 pg Mean Corpuscular Hemoglobin Concent 36.0 g/dl RDW Standard Deviation 39.7 fL RDW Coefficient of Variation 12.5 % Platelet Count 213 K/uL Mean Platelet Volume 9.5 fL Sodium Level 140 mmol/L Potassium Level 4.3 mmol/L Chloride Level 102 mmol/L Carbon Dioxide Level 33 mmol/L Anion Gap 5.0 mmol/L Blood Urea Nitrogen 14 mg/dl Creatinine 0.87 mg/dl Est Creatinine Clear Calc Drug Dose 58.9 ml/min Estimated GFR () 81.0 Estimated GFR (Non- 69.9 BUN/Creatinine Ratio 16.0 Random Glucose 86 mg/dl Calcium Level 8.9 mg/dl Triglycerides Level 740 mg/dl Cholesterol Level 249 mg/dl HDL Cholesterol 39 mg/dl LDL Cholesterol, Calculated mg/dl VLDL Cholesterol, Calculated mg/dl Cholesterol/HDL Ratio 6.4 Chemistry Specimen Hemolysis Assessment & Plan L ARM WEAKNESS (RESOLVED) LIKELY TIA; R/O CVA pt presented with L arm weakness/"heaviness" assoc with elevated BPs -pt is not a candidate for Tpa as sxs resolved prior to arrival - Brain MRI and MRA: unrevealing Echo noted - Aspirin, Plavix, Lipitor started - appreciate Neuro input HYPERLIPIDEMIA - Lipitor started - monitor as outpatient UNCONTROLLED HTN -pt reports BP ~220/160 at home; BP 150s/70s in ED -discontinue atenolol and valsartan -started HCTZ-losartan and amlodipine - improving GERD -cont PPI CHRONIC CERVICAL PAIN -s/p cervical fusion -cont Percocet PRN ANXIETY -pt reports feeling more anxious recently ( no new stressors) -cont Paxil - Psych consulted DVT PROPHYLAXIS -subq Lovenox CODE STATUS -FULL CODE status per discussion with patient upon admission DISPO pending Current Inpatient Medications: Current Inpatient Medications Medications (Trade) Dose Ordered Sig/Silverio Route Start Time Stop Time Status Last Admin Dose Admin Enoxaparin Sodium (Lovenox Inj) 40 mg Q24H SC 10/23/16 21:00 11/22/16 20:59 Acetaminophen (Tylenol Tab) 650 mg Q4H PRN PO 10/23/16 17:45 11/22/16 17:44 Ondansetron HCl (Zofran Inj) 4 mg Q6H PRN IV 10/23/16 17:45 11/22/16 17:44 Nitroglycerin (Nitrostat Tab) 0.4 mg UD PRN SL 10/23/16 17:45 11/22/16 17:44 Aspirin (Ecotrin Tab) 81 mg QAM PO 10/24/16 09:00 11/23/16 08:59 10/24/16 08:28 81 MG Miscellaneous Information (Pharmacist Discharge Med Rec Consult) 1 ea UD PRN N/A 10/23/16 17:45 11/22/16 17:44 Miscellaneous (Iv Fluids Completed) 1 ea PRN PRN N/A 10/23/16 18:00 10/23/17 17:59 Ascorbic Acid (Vitamin C Tab) 500 mg DAILY PO 10/24/16 09:00 11/23/16 08:59 10/24/16 08:29 500 MG Cholecalciferol (Vitamin D Tab) 1,000 inter.unit DAILY PO 10/24/16 09:00 11/23/16 08:59 10/24/16 09:20 1,000 INTER.UNIT Cyanocobalamin (Vitamin B-12 Tab) 500 mcg DAILY PO 10/24/16 09:00 11/23/16 08:59 10/24/16 09:20 500 MCG Oxycodone/ Acetaminophen (Percocet 10-325MG Tab) 1 tab Q6H PRN PO 10/23/16 18:00 11/06/16 17:59 10/24/16 19:08 1 TAB Paroxetine HCl (pAXil TAB) 10 mg DAILY PO 10/24/16 09:00 11/23/16 08:59 10/24/16 08:28 10 MG xj-Bnppn-Osddgwbaoj Acetate (Vitamin E Cap) 400 interunit DAILY PO 10/24/16 09:00 11/23/16 08:59 10/24/16 08:28 400 INTERUNIT Fish Oil ([place]-3 (Purified Fish Oil) Cap) 1 gm DAILY PO 10/24/16 09:00 11/23/16 08:59 10/24/16 08:28 1 GM Pantoprazole Sodium (Protonix Tab) 40 mg DAILY PO 10/24/16 09:00 11/23/16 08:59 10/24/16 08:29 40 MG HCTZ/Losartan Potassium (Hyzaar 50-12.5 Tab) 1 tab QAM PO 10/24/16 09:00 11/23/16 08:59 10/24/16 08:30 1 TAB Amlodipine Besylate (Norvasc Tab) 5 mg QAM PO 10/24/16 09:00 11/23/16 08:59 10/24/16 08:30 5 MG Atorvastatin Calcium (Lipitor Tab) 40 mg QPM PO 10/23/16 21:00 11/22/16 20:59 10/24/16 19:08 40 MG Gadobutrol (Gadavist) 7 mmol UD PRN IV 10/23/16 21:30 10/27/16 21:29 Docusate Sodium (coLACE CAP) 100 mg BID PO 10/24/16 21:00 11/23/16 20:59 10/24/16 17:50 100 MG Clopidogrel Bisulfate (plAVix TAB) 75 mg QAM PO 10/25/16 09:00 11/24/16 08:59 Ondansetron HCl (Zofran Tab) 4 mg Q6H PRN PO 10/24/16 17:45 11/23/16 17:44 10/24/16 18:12 4 MG
[2016-10-24] MEDS: ENOXAPARIN 40 MG/0.4 ML SYR SC SCH (21:00)
[2016-10-25 03:05] VITALS: BP 120/62; PULSE 56; TEMP 36.6; O2SAT 92
[2016-10-25] MEDS: OXYCODONE/ACETAMINOPHEN 10/325MG TAB PO PRN (06:10)
[2016-10-25 07:04] LABS: BUN/CREATININE RATIO 17.3 (10-20); CALCIUM 9.1 mg/dl (8.5-10.1); POTASSIUM 3.8 mmol/L (3.5-5.1)
[2016-10-25 07:26] VITALS: BP 123/67; PULSE 57; TEMP 36.6; O2SAT 91
[2016-10-25] MEDS ORDERED: KETOROLAC TROMETHAMINE 15 MG/ML VIAL IV PRN (07:45)
[2016-10-25] MEDS ORDERED: KETOROLAC TROMETHAMINE 15 MG/ML VIAL IV ONE (07:45)
[2016-10-25] MEDS: CYANOCOBALAMIN 500 MCG TAB (VIT B-12) PO SCH (08:02)
[2016-10-25] MEDS: PAROXETINE 20 MG TAB PO SCH (08:02)
[2016-10-25] MEDS: ASPIRIN 81 MG ECTAB PO SCH (08:03)
[2016-10-25] MEDS: OMEGA-3 (PURIFIED FISH OIL) 1 GM CAP PO SCH (08:03)
[2016-10-25] MEDS: CHOLECALCIFEROL 1000 INTER.UNIT TAB PO SCH (08:03)
[2016-10-25] MEDS: PANTOprazole SOD 40 MG TAB PO SCH (08:03)
[2016-10-25] MEDS: ASCORBIC ACID 500 MG TAB PO SCH (08:03)
[2016-10-25] MEDS: AMLODIPINE BESYLATE 5 MG TAB PO SCH (08:03)
[2016-10-25] MEDS: LOSARTAN/HCTZ 50-12.5 EA TAB PO SCH (08:03)
[2016-10-25] MEDS: TOCOPHERYL, DL-ALPHA 400 INTER.UNIT CAP PO SCH (08:03)
[2016-10-25] MEDS: DOCUSATE SODIUM 100 MG CAP PO SCH (08:04)
[2016-10-25] MEDS ORDERED: CLOPIDOGREL BISULFATE 75 MG TAB PO SCH ×2 (09:00)
[2016-10-25 10:53] VITALS: BP 103/50; PULSE 59; TEMP 36.6; O2SAT 94
--- NOTE | 2016-10-25 11:37 | Psychiatric Consultation ---
Consultation Identifying Data 66 yo female who is and lives alone in [place]. Consult by Dr. Hartman for depression and anxiety. Admited 10/23/16 for an episode of L arm weakness and elevated BP. Chief Complaint "I'm not usually tearful like this". History of Present Illness Patient has been feeling increasingly lonely for the past few weeks, like her kids and grandchildren have thei own lives. She is not sleeping as well. Her panic attacks are a bit more frequent again but not as intense as prior to starting Paxil 10 years ago by her PCP. She uses distraction and calming techniques. Her PHQ-9 was elevated at 23 but she reconfirms that she has never experienced suicidal thoughts and feels that is not something she would ever consider given her mandaen. She has been able to maintain her work as it gives her something "to do whether I feel like it or not". She has been crying alot and has difficulty shutting her mind off to fall asleep. She gets frustrated with her lack of concentration and feeling tired and this makes her "snappier" with others. Past Psychiatric History Current OP Treatment: no current treatment (other than med management by pcp) Prior OP Treatment: no prior treatment no history of suicide attempts or inpatient hospitalizations only med trial Paxil, never over 10 mg, has tried tapering off before but experienced discontinuation syndrome Past Medical/Surgical History Problem List: (1) Hypertension (2) GERD (gastroesophageal reflux disease) (3) HTN (hypertension) (4) Panic disorder (5) Dyslipidemia (6) Chronic neck pain (7) Left arm weakness (8) History of hysterectomy (9) History of cholecystectomy (10) History of carpal tunnel surgery (11) History of appendectomy (12) S/P cervical spinal fusion Allergies Allergies: Coded Allergies: Propoxyphene (Verified Allergy, Intermediate, TACHYCARDIA, 10/23/16) Home Medications Scheduled Ascorbic Acid (Ascorbic Acid), 500 MG PO DAILY Atenolol (Tenormin), 50 MG PO BID Cholecalciferol (Vitamin D3), 1 TAB PO DAILY Cyanocobalamin (Vitamin B12 500MCG), 500 MCG PO DAILY [place]-3 Fatty Acids (Fish Oil), 1 CAP PO DAILY Omeprazole (Prilosec), 40 MG PO DAILY Paroxetine Hcl (Paxil), 10 MG PO DAILY Valsartan (Valsartan), 160 MG PO DAILY Vitamin E (Vitamin E 400 Iu), 400 INTER.UNIT PO DAILY Scheduled PRN Oxycodone/Acetaminophen 10MG/325MG (Percocet 10MG/325MG), 1 TAB PO Q6H PRN for Pain Family History Cancer Hypertension Stroke denies family history of suicide or depression but brothers and father abused alcohol. Alcohol Use Alcohol Use In Past 12 Months: No Substance History denies, stopped methadone 2 months ago after taking it for 13 years for oxycontin addiction post surgery 15 years ago. 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 Examination Vital Signs Vital Signs Past 12 Hours Date Time Temp Pulse Resp B/P Pulse Ox O2 Delivery O2 Flow Rate FiO2 10/25/16 10:53 36.6 59 18 103/50 94 Room Air 10/25/16 08:00 Room Air 10/25/16 07:26 36.6 57 18 123/67 91 Room Air 10/25/16 04:00 Room Air 10/25/16 03:05 36.6 56 16 120/62 92 Room Air 10/25/16 00:01 Room Air Laboratory Results Last 24 Hours Test 10/25/16 05:45 Sodium Level 139 mmol/L Potassium Level 3.8 mmol/L Chloride Level 100 mmol/L Carbon Dioxide Level 33 mmol/L Anion Gap 6.0 mmol/L Blood Urea Nitrogen 17 mg/dl Creatinine 1.00 mg/dl Est Creatinine Clear Calc Drug Dose 50.8 ml/min Estimated GFR () 68.5 Estimated GFR (Non- 59.1 BUN/Creatinine Ratio 17.3 Random Glucose 90 mg/dl Calcium Level 9.1 mg/dl Mental Examination During interview pt is: alert and oriented Appearance: appropriately groomed Eye contact is: good Motor behavior is: no abnormal motor movements Speech: normal in rate, rhythm & volume Affect: depressed Mood is: depressed Thought process: clear, coherent Thought content: reality based without delusions Suicidal thought are: denied Homicidal thoughts are: denied Hallucinations: denies auditory, denies visual Cognition: memory grossly intact, attention grossly intact Intelligence estimated to be: consistent with level of education Insight: fair Judgement: fair Impression / Recommendations Impression 66 yo female on penitentiary low dose paxil for history of panic disorder presents with increasing depressive symptoms following d/c of methadone maintenance. Risk Factors Assessment : Yes /single/: Yes Access to guns: No Previous attempt: No Protective Factors Assessment Stable relationships: Yes Recommendations (1) Major depressive disorder, recurrent episode with anxious distress no indication for inpatient psych admission would benefit from outpatient therapy and agrees to sign BERENICE for liaison to facilitate referral to Rad[facility] sánchez initial med follow-up with PCP, agreeable to increase Paxil to 20 mg daily. Likely change in efficacy given the fact it is no longer coadministered with methadone. treating depression should help with sleep. She is aware that if medication is ultimately changed Paxil needs to be tapered to avoid discontinuation syndromes. would avoid benzos given reported history of opiate dependence
--- NOTE | 2016-10-25 12:45 | Neurology Progress Notes ---
Neurology Progress Note Date of Service Oct 25, 2016. Arnold Mota is a 66 year old female with PMH of HTN, Dyslipidemia, panic attacks. She states her blood pressure has been elevated and her doctor just increased her does of atenolol 25 mg daily to 50 mg BID and losartan 50 mg to valsartan 160 mg daily. She states that her blood pressure has not been under control since she started the new regimen. She has been monitoring it for the past 3 days and it was 220/160 last night. This morning her BP was still 220/140. She called her daughter when he arm went numb and she couldn't lift it. She also took another atenolol after the arm symptoms started. For weeks she has had hot flashes, diaphoresis, SANCHEZ (occipital) and blurred vision. She also had some difficulty swallowing and the side of her face felt funny but she states this sometimes happens during her anxiety attacks. She does have chronic neck pain and paresthesias in her L arm however the heavy feeling was new. She has never had a CVA but there is a strong family history of CVA. Her father and brother both of strokes at 55 and 40 respectively. Mother had multiple TIAs. She lives alone but she called her friend to come help with her blood pressure and she didn't notice any facial droop or slurred speech. She did have her call 911. She was not previously on aspirin. She states she has been crying and that is not like her. She does have some uncontrolled anxiety and has been on Paxil for years. She states she is getting an appointment scheduled with psychology as out patient. She is also concerned about her cholesterol and would like a nutrition consult to get her started in the right direction. denies CP, SOB, abdominal pain, weakness, numbness tingling , N, V. Objective Date Time Temp Pulse Resp B/P Pulse Ox O2 Delivery O2 Flow Rate FiO2 10/25/16 10:53 36.6 59 18 103/50 94 Room Air 10/25/16 08:00 Room Air 10/25/16 07:26 36.6 57 18 123/67 91 Room Air 10/25/16 04:00 Room Air 10/25/16 03:05 36.6 56 16 120/62 92 Room Air 10/25/16 00:01 Room Air 10/24/16 23:00 36.5 54 16 112/53 92 Room Air 10/24/16 20:00 Room Air 10/24/16 19:34 36.7 62 18 118/66 93 Room Air 10/24/16 15:50 93 Room Air 10/24/16 15:15 36.8 57 20 128/72 93 Room Air Last 24 Hours Test 10/25/16 05:45 Sodium Level 139 mmol/L Potassium Level 3.8 mmol/L Chloride Level 100 mmol/L Carbon Dioxide Level 33 mmol/L Anion Gap 6.0 mmol/L Blood Urea Nitrogen 17 mg/dl Creatinine 1.00 mg/dl Est Creatinine Clear Calc Drug Dose 50.8 ml/min Estimated GFR () 68.5 Estimated GFR (Non- 59.1 BUN/Creatinine Ratio 17.3 Random Glucose 90 mg/dl Calcium Level 9.1 mg/dl Imaging: no new imaging Exam: Physical Exam: Constitutional: appearance nourished, healthy and normal Ears, Nose, Mouth and Throat: mucous membranes moist, no injection and skin normal, eyes normal Cardiovascular: normal S-1 and S-2 and regular rate and rhythm Respiratory: clear to auscultation (CTA) and no rales, rhonchi or wheeze Musculoskeletal: no peripheral edema and good distal pulses Skin: no stigmata of neurocutaneous disease noted and normal and intact Eyes: extraocular muscles intact (EOMI) and pupils equal, round and reactive to light (PERRL) NEUROLOGIC EXAMINATION: Mental status: Alert and interactive Oriented to full date and location Oriented to person Speech fluent with no evidence of aphasia Cranial Nerves smile eye brow raise symmetric, tongue midline Coordination: finger to nose without bi pass or tremor Gait/Stance: Posture sitting in bedside chair Motor: Negative for pronator drift of out stretched arms with eyes closed. Strength: biceps triceps hand rn concurrent review 5/5 bilaterally hip flex 5/5 Current Inpatient Medications Medications (Trade) Dose Ordered Sig/Silverio Route Start Time Stop Time Status Last Admin Dose Admin Enoxaparin Sodium (Lovenox Inj) 40 mg Q24H SC 10/23/16 21:00 11/22/16 20:59 Acetaminophen (Tylenol Tab) 650 mg Q4H PRN PO 10/23/16 17:45 11/22/16 17:44 Ondansetron HCl (Zofran Inj) 4 mg Q6H PRN IV 10/23/16 17:45 4/14/17 17:44 Nitroglycerin (Nitrostat Tab) 0.4 mg UD PRN SL 10/23/16 17:45 11/22/16 17:44 Aspirin (Ecotrin Tab) 81 mg QAM PO 10/24/16 09:00 11/23/16 08:59 10/25/16 08:03 81 MG Miscellaneous Information (Pharmacist Discharge Med Rec Consult) 1 ea UD PRN N/A 10/23/16 17:45 11/22/16 17:44 Miscellaneous (Iv Fluids Completed) 1 ea PRN PRN N/A 10/23/16 18:00 10/23/17 17:59 Ascorbic Acid (Vitamin C Tab) 500 mg DAILY PO 10/24/16 09:00 11/23/16 08:59 10/25/16 08:03 500 MG Cholecalciferol (Vitamin D Tab) 1,000 inter.unit DAILY PO 10/24/16 09:00 11/23/16 08:59 10/25/16 08:03 1,000 INTER.UNIT Cyanocobalamin (Vitamin B-12 Tab) 500 mcg DAILY PO 10/24/16 09:00 11/23/16 08:59 10/25/16 08:02 500 MCG Oxycodone/ Acetaminophen (Percocet 10-325MG Tab) 1 tab Q6H PRN PO 10/23/16 18:00 11/06/16 17:59 10/25/16 06:10 1 TAB [id number] Acetate (Vitamin E Cap) 400 interunit DAILY PO 10/24/16 09:00 11/23/16 08:59 10/25/16 08:03 400 INTERUNIT Fish Oil ([place]-3 (Purified Fish Oil) Cap) 1 gm DAILY PO 10/24/16 09:00 11/23/16 08:59 10/25/16 08:03 1 GM Pantoprazole Sodium (Protonix Tab) 40 mg DAILY PO 10/24/16 09:00 11/23/16 08:59 10/25/16 08:03 40 MG HCTZ/Losartan Potassium (Hyzaar 50-12.5 Tab) 1 tab QAM PO 10/24/16 09:00 11/23/16 08:59 10/25/16 08:03 1 TAB Amlodipine Besylate (Norvasc Tab) 5 mg QAM PO 10/24/16 09:00 11/23/16 08:59 10/25/16 08:03 5 MG Atorvastatin Calcium (Lipitor Tab) 40 mg QPM PO 10/23/16 21:00 11/22/16 20:59 10/24/16 19:08 40 MG Gadobutrol (Gadavist) 7 mmol UD PRN IV 10/23/16 21:30 10/27/16 21:29 Docusate Sodium (coLACE CAP) 100 mg BID PO 10/24/16 21:00 11/23/16 20:59 10/25/16 08:04 100 MG Clopidogrel Bisulfate (plAVix TAB) 75 mg QAM PO 10/25/16 09:00 11/24/16 08:59 10/25/16 08:03 75 MG Ondansetron HCl (Zofran Tab) 4 mg Q6H PRN PO 10/24/16 17:45 11/23/16 17:44 10/24/16 18:12 4 MG Ketorolac Tromethamine (Toradol Inj) 15 mg Q6H PRN IV 10/25/16 07:45 10/30/16 07:44 Paroxetine HCl (pAXil TAB) 20 mg DAILY PO 10/26/16 09:00 11/25/16 08:59 Impression 66 year old female with stroke like symptoms Plan 1. MRI with no evidence of acute findings 2. MRA no vascular abnormalities in head or neck 3. TTE within normal limited 4. would continue aspirin 81 mg and start Plavix 75 mg x 3 months and then stop plavix and continue aspirin 5. follow up with cardiology as scheduled- will need out patient monitoring with ZIO patch to r/o arrhythmias 6. optimize blood pressure and cholesterol management 7. all symptoms have resolved no PT/OT needs at this time 8. nutrition consult as outpatient would be of benefit to the patient follow up in neurology 3-4 weeks after discharge Manasa Cordoba PAC schedule I have seen and discussed above patient with Dr Stephan Martinez, neurology Seen today and examined no clear focal signs other than a left facial asymmetry that may be incidental in light of the negative imaging studies on asa now and will be seen in follow up by Manasa Cordoba and Manasa Toscano with cardionet or zio patch evaluation for paf Stephan Pritchard MD
--- NOTE | 2016-10-25 13:50 | Progress Note ---
Medicine Progress Note Date & Time of Visit: Oct 25, 2016 at 13:39. Subjective patient states she feels much better in good spirits mood is better denies focal neuro deficits denies dizziness, headache, chest pain, dyspnea, palpitations, nausea no other symptoms denies other symptoms Objective Last 8 Hrs Date Time Temp Pulse Resp B/P Pulse Ox O2 Delivery O2 Flow Rate FiO2 10/25/16 12:00 Room Air 10/25/16 10:53 36.6 59 18 103/50 94 Room Air 10/25/16 08:00 Room Air 10/25/16 07:26 36.6 57 18 123/67 91 Room Air Physical Exam: General- oriented x 3, not in distress, speaks in sentences with no effort Neck- no JVD Lungs- clear breath sounds bilaterally, no rales Heart- normal rate, regular rhythm; no murmurs Abdomen- normal bowel sounds, soft, nontender Extremities- no pretibial edema, no calf tenderness; peripheral pulses intact Neuro- alert, oriented x 3; no gross deficits Skin- warm & dry Laboratory Results: Last 24 Hours Test 10/25/16 05:45 Sodium Level 139 mmol/L Potassium Level 3.8 mmol/L Chloride Level 100 mmol/L Carbon Dioxide Level 33 mmol/L Anion Gap 6.0 mmol/L Blood Urea Nitrogen 17 mg/dl Creatinine 1.00 mg/dl Est Creatinine Clear Calc Drug Dose 50.8 ml/min Estimated GFR () 68.5 Estimated GFR (Non- 59.1 BUN/Creatinine Ratio 17.3 Random Glucose 90 mg/dl Calcium Level 9.1 mg/dl Assessment & Plan LEFT ARM WEAKNESS (RESOLVED) LIKELY TRANSIENT ISCHEMIC ATTACK pt presented with L arm weakness/"heaviness" assoc with elevated BPs -pt is not a candidate for Tpa as sxs resolved prior to arrival - Brain MRI and MRA: unrevealing Echo: -- Conclusions -- * The left ventricle is normal in size. * There is moderate concentric left ventricular hypertrophy. * The left ventricular wall motion is normal. * Ejection Fraction = 65-70%. * The right ventricular systolic function is normal. * The interatrial septum is intact with no evidence for an atrial septal defect. * Injection of contrast documented no interatrial shunt. * No significant valvular disease. - Neurology consulted, recommended: Aspirin 81mg po daily Plavix 75mg po daily x 3 months then stop Lipitor outpatient Zio patch monitoring to r/o Arrhythmia ff up with Neurologist Dr. Manasa Toscano in 3-4 weeks - maintain good BP and other risk factor control UNCONTROLLED HYPERTENSION -pt reports BP ~220/160 at home; BP 150s/70s in ED -discontinue atenolol and valsartan -started HCTZ-losartan 50/12.5mg and amlodipine 5mg po - improving HYPERLIPIDEMIA - TG 740, LDL unmeasurable - Lipitor started - monitor LFTs as outpatient GERD -cont PPI CHRONIC CERVICAL PAIN -s/p cervical fusion -cont Percocet PRN ANXIETY -pt reports feeling more anxious recently ( no new stressors) - Psych consulted and recommended to increase Paxil 20mg po daily continue outpatient follow up DVT PROPHYLAXIS -subq Lovenox CODE STATUS -FULL CODE status per discussion with patient upon admission DISPO d/c home today ff up with PCP in 3-5 days ff up with [facility] for outpatient cardiac monitoring ff up with Psychiatrist in 1 week Current Inpatient Medications: Current Inpatient Medications Medications (Trade) Dose Ordered Sig/Silverio Route Start Time Stop Time Status Last Admin Dose Admin Enoxaparin Sodium (Lovenox Inj) 40 mg Q24H SC 10/23/16 21:00 11/22/16 20:59 Acetaminophen (Tylenol Tab) 650 mg Q4H PRN PO 10/23/16 17:45 11/22/16 17:44 Ondansetron HCl (Zofran Inj) 4 mg Q6H PRN IV 10/23/16 17:45 11/22/16 17:44 Nitroglycerin (Nitrostat Tab) 0.4 mg UD PRN SL 10/23/16 17:45 11/22/16 17:44 Aspirin (Ecotrin Tab) 81 mg QAM PO 10/24/16 09:00 11/23/16 08:59 10/25/16 08:03 81 MG Miscellaneous Information (Pharmacist Discharge Med Rec Consult) 1 ea UD PRN N/A 10/23/16 17:45 11/22/16 17:44 Miscellaneous (Iv Fluids Completed) 1 ea PRN PRN N/A 10/23/16 18:00 10/23/17 17:59 Ascorbic Acid (Vitamin C Tab) 500 mg DAILY PO 10/24/16 09:00 11/23/16 08:59 3/17/17 08:03 500 MG Cholecalciferol (Vitamin D Tab) 1,000 inter.unit DAILY PO 10/24/16 09:00 11/23/16 08:59 10/25/16 08:03 1,000 INTER.UNIT Cyanocobalamin (Vitamin B-12 Tab) 500 mcg DAILY PO 10/24/16 09:00 11/23/16 08:59 10/25/16 08:02 500 MCG Oxycodone/ Acetaminophen (Percocet 10-325MG Tab) 1 tab Q6H PRN PO 10/23/16 18:00 11/06/16 17:59 10/25/16 06:10 1 TAB [id number]-[id number] Acetate (Vitamin E Cap) 400 interunit DAILY PO 10/24/16 09:00 11/23/16 08:59 10/25/16 08:03 400 INTERUNIT Fish Oil ([place]-3 (Purified Fish Oil) Cap) 1 gm DAILY PO 10/24/16 09:00 11/23/16 08:59 10/25/16 08:03 1 GM Pantoprazole Sodium (Protonix Tab) 40 mg DAILY PO 10/24/16 09:00 11/23/16 08:59 10/25/16 08:03 40 MG HCTZ/Losartan Potassium (Hyzaar 50-12.5 Tab) 1 tab QAM PO 10/24/16 09:00 11/23/16 08:59 10/25/16 08:03 1 TAB Amlodipine Besylate (Norvasc Tab) 5 mg QAM PO 10/24/16 09:00 11/23/16 08:59 10/25/16 08:03 5 MG Atorvastatin Calcium (Lipitor Tab) 40 mg QPM PO 10/23/16 21:00 11/22/16 20:59 10/24/16 19:08 40 MG Gadobutrol (Gadavist) 7 mmol UD PRN IV 10/23/16 21:30 10/27/16 21:29 Docusate Sodium (coLACE CAP) 100 mg BID PO 10/24/16 21:00 11/23/16 20:59 10/25/16 08:04 100 MG Clopidogrel Bisulfate (plAVix TAB) 75 mg QAM PO 10/25/16 09:00 11/24/16 08:59 10/25/16 08:03 75 MG Ondansetron HCl (Zofran Tab) 4 mg Q6H PRN PO 10/24/16 17:45 11/23/16 17:44 10/24/16 18:12 4 MG Ketorolac Tromethamine (Toradol Inj) 15 mg Q6H PRN IV 10/25/16 07:45 10/30/16 07:44 Paroxetine HCl (pAXil TAB) 20 mg DAILY PO 10/26/16 09:00 11/25/16 08:59
[2016-10-25] MEDS ORDERED: NRV5 PO (13:52)
[2016-10-25] MEDS ORDERED: LOSA50TA55 PO (13:52)
[2016-10-25] MEDS ORDERED: PXL20 PO (13:52)
[2016-10-25] MEDS ORDERED: ASPEC81 PO (13:52)
[2016-10-25] MEDS ORDERED: LPT40 PO (13:52)
[2016-10-25] MEDS ORDERED: PLV75 PO (13:52)
--- NOTE | 2016-10-25 14:04 | Discharge Instructions ---
Discharge Instructions Date of Service Oct 25, 2016. Admission Reason for Admission: TIA Discharge Discharge Diagnosis / Problem: POSSIBLE TRANSIENT ISCHEMIC ATTACK Discharge Goals Goal(s): Diagnostic testing, Therapeutic intervention Activity Recommendations Activity Limitations: as noted below (NO HEAVY EXERTION UNTIL RE-EVALUATED BY PRIMARY CARE PHYSICIAN) Driving or Machine Use: NO DRIVING UNTIL RE EVLUATED BY PRIMARY CARE PHYSICIAN . Instructions / Follow-Up Instructions / Follow-Up PLEASE REVIEW YOUR NEW MEDICATION LIST AND FOLLOW INSTRUCTIONS CAREFULLY. STOP PLAVIX AFTER 3 MONTHS UNLESS ADVISED BY YOUR DOCTOR. CALL PRIMARY CARE PHYSICIAN IF WITH DIZZINESS, WEAKNESS, MUSCLE ACHES. FURTHER INSTRUCTIONS NOTED BELOW. FOLLOW UP WITH PRIMARY CARE PHYSICIAN IN 3-5 DAYS. FOLLOW UP WITH [facility] FOR OUTPATIENT CARDIAC MONITORING. FOLLOW UP WITH PSYCHIATRIST IN 1 WEEK. Risk Factors for Stroke: You can reduce your chances of stroke by working with your medical provider to adopt a healthy lifestyle. Some specific ways to lower your chance of stroke are: * If you are a smoker, now is the time to stop smoking cigarettes * If you are diabetic, improve the control of your blood sugars * Avoid excessive amounts of alcohol * Control high blood pressure * Lose weight if you are overweight * Be sure to lead an active lifestyle * Eat a healthy diet low in salt, cholesterol and fat You should know about other risk factors for stroke that you are unable to control. These include: * Age 55 years or older * Male gender * Certain racial groups: , or / * Family History of Stroke, Mini stroke or Heart Attack * Sickle Cell Disease Follow Up: It is important for you to keep your follow up appointments with your medical provider. Current Hospital Diet Patient's current hospital diet: Regular Diet Discharge Diet Recommended Diet: AHA Diet (Heart Healthy) Pending Studies Studies pending at discharge: yes List of pending studies: OUTPATIENT CARDIAC MONITORING C/O [facility] Laboratory Results Hemoglobin A1c Test 10/23/16 12:40 Range/Units Estimated Average Glucose 120 mg/dl Hemoglobin A1c 5.8 H 4.5-5.6 % Lipid Panel Test 10/24/16 05:23 Range/Units Triglycerides Level 740 H 0-150 mg/dl Cholesterol Level 249 H 0-200 mg/dl HDL Cholesterol 39 mg/dl Cholesterol/HDL Ratio 6.4 LDL Cholesterol, Calculated mg/dl Medical Emergencies . Who to Call and When: Medical Emergencies: Call 911 immediately if you experience any of the following warning signs and symptoms of Stroke: * Sudden numbness or weakness of the face, arm or leg, especially on one side of the body * Sudden confusion, trouble speaking or understanding * Sudden trouble seeing in one or both eyes * Sudden trouble walking, dizziness, loss of balance or coordination * Sudden severe headache with no cause Do not delay calling 911 if you experience any warning signs or symptoms of a stroke. Delay in seeking medical attention may affect what treatments can be given to you. . Non-Emergent Contact Non-Emergency issues call your: Primary Care Provider Call Non-Emergent contact if: you have a fever, your pain is not controlled, you have any medication questions . Past History Medical & Surgical History: (1) Headache (2) Hypertension (3) Major depressive disorder, recurrent episode with anxious distress (4) GERD (gastroesophageal reflux disease) (5) HTN (hypertension) (6) Panic disorder (7) Dyslipidemia (8) Chronic neck pain (9) Left arm weakness (10) History of hysterectomy (11) History of cholecystectomy (12) History of carpal tunnel surgery (13) History of appendectomy (14) S/P cervical spinal fusion . "Provider Documentation" section prepared by Berry Martinez. Stroke Core Measures Reason no t-PA for Stroke: Treatment not indicated Reason no antithrom by day 2: Treatment provided - N/A Reason no antithrom at D/C: Treatment provided - N/A Reason no statin at D/C: Treatment provided - N/A Reason no anticoag w/a fib: Treatment not indicated VTE Core Measure Inpt VTE Proph given/why not?: Enoxaparin (Lovenox)SQ [place] Drug Monitoring Program Search Results: patient reviewed within database, no issues identified
--- NOTE | 2016-10-25 14:08 | Discharge Summary ---
Discharge Summary Date of Service Oct 25, 2016. Discharge Summary Admission Date: Oct 23, 2016 at 17:50 Discharge Date: Oct 25, 2016 Discharge Disposition: Home Principal Diagnosis: LEFT ARM WEAKNESS (RESOLVED) LIKELY TRANSIENT ISCHEMIC ATTACK Secondary Diagnoses/Problems: PLEASE REFER TO HOSPITAL COURSE BELOW. Procedures: MRI OF THE BRAIN WITHOUT AND WITH IV CONTRAST CLINICAL HISTORY: Hypertension. Evaluate for stroke. COMPARISON STUDY: Head CT October 13, 2016 and October 06, 2014 TECHNIQUE: Utilizing a 1.5 Alyssa magnet and dedicated coil, multiplanar, multiecho imaging of the brain was performed pre and postcontrast administration. IV administration of 7 mL of Gadavist contrast was uneventful. FINDINGS: This exam is mildly compromised by motion artifact. There are no areas of restricted diffusion. No acute intracranial hemorrhage, midline shift or mass effect is present. Ventricular system is normal. Basilar cisterns are patent. There are no extra-axial collections. There is a partially empty sella. No intracranial mass or pathologic enhancement is present. Flow-voids for the major intracranial vessels are present. No areas of significant signal abnormality are identified. Orbits and sinuses are unremarkable. IMPRESSION: 1. No acute intracranial findings. 2. Study mildly compromised by motion artifact. 3. Unremarkable MRI of the brain for age. MRA OF THE INTRACRANIAL CIRCULATION WITHOUT CONTRAST CLINICAL HISTORY: Stroke. Hypertension. COMPARISON STUDY: None. TECHNIQUE: Utilizing a 1.5 Alyssa magnet and 3-D [id number] technique, unenhanced MRA of the intracranial circulation was obtained. FINDINGS: The bilateral M1, M2, A1 and A2 segments are patent. No intracranial aneurysm is identified although sensitivity for detection of small aneurysms is diminished on this exam. There is no abrupt vessel cut off. The left vertebral artery is dominant. Posterior circulation appears intact. IMPRESSION: Unremarkable MRA of the intracranial circulation. MRA OF THE NECK WITH AND WITHOUT CONTRAST CLINICAL HISTORY: Stroke. Hypertension. COMPARISON STUDY: None. TECHNIQUE: Unenhanced and contrast-enhanced MRA of the neck was performed. Injection of 7 mL of Gadavist IV was uneventful. NASCET criteria were utilized to estimate the degree of carotid stenosis. FINDINGS: The bilateral common carotid and internal carotid arteries are patent. There is no significant stenosis of these vessels. No dissection is identified within these vessels. The left vertebral artery is dominant and patent. The right vertebral artery is diminutive and not well evaluated on this examination. IMPRESSION: 1. No significant stenosis within the bilateral internal carotid and common carotid arteries. 2. Dominant, patent left vertebral artery. 3. Diminutive right vertebral artery which is not well evaluated on this exam. 2D ECHO * -- Conclusions -- * The left ventricle is normal in size. * There is moderate concentric left ventricular hypertrophy. * The left ventricular wall motion is normal. * Ejection Fraction = 65-70%. * The right ventricular systolic function is normal. * The interatrial septum is intact with no evidence for an atrial septal defect. * Injection of contrast documented no interatrial shunt. * No significant valvular disease. Consultations: NEUROLOGIST DR. TOSCANO; PSYCHIATRIST DR. RIVERA Pending Studies/Follow-Up: PLEASE MONITOR BP, LIVER FUNCTION TEST (RE: STATIN STARTED); OUTPATIENT ZIO PATCH MONITORING C/O MANAGEMENT REP; PLEASE REFER TO HOSPITAL COURSE BELOW FOR FURTHER DETAILS. Medication Reconciliation New Medications: Amlodipine Besylate (Amlodipine Besylate) 5 Mg Tab 5 MG PO QAM for 30 Days, #30 TAB 1 Refill Aspirin (Aspirin EC Low Dose) 81 Mg Ectab 81 MG PO QAM for 30 Days, #30 TAB 1 Refill with full stomach Atorvastatin (Atorvastatin Calcium) 40 Mg Tab 40 MG PO QPM for 30 Days, #30 TAB 1 Refill Clopidogrel Bisulfate (Clopidogrel) 75 Mg Tab 75 MG PO QAM for 30 Days, #30 TAB 1 Refill Losartan Potassium & Hydrochlo (Losartan Potassium/Hydroc) 1 Tab Tab 1 TAB PO QAM for 30 Days, #30 TAB 1 Refill Paroxetine (Paroxetine HCl) 20 Mg Tab 20 MG PO DAILY for 30 Days, #30 TAB 0 Refills Continued Medications: Ascorbic Acid (Ascorbic Acid) 500 Mg Tab 500 MG PO DAILY, TAB Cholecalciferol (Vitamin D3) 1,000 Unit Tab 1 TAB PO DAILY for 30 Days, #30 TAB 5 Refills Cyanocobalamin (Vitamin B12 500MCG) 500 Mcg Tab 500 MCG PO DAILY, TAB [place]-3 Fatty Acids (Fish Oil) 1 Cap Cap 1 CAP PO DAILY Omeprazole (Prilosec) 20 Mg Cap 40 MG PO DAILY, #60 Oxycodone/Acetaminophen 10MG/325MG (Percocet 10MG/325MG) 1 Tab Tab 1 TAB PO Q6H PRN for Pain, TAB Vitamin E (Vitamin E 400 Iu) 400 Unit Cap 400 INTER.UNIT PO DAILY, CAP Discontinued Medications: Atenolol (Tenormin) 50 Mg Tab 50 MG PO BID, TAB Paroxetine Hcl (Paxil) 10 Mg Tab 10 MG PO DAILY, TAB Valsartan (Valsartan) 160 Mg Tab 160 MG PO DAILY, #30 Admission Information HPI (per Admitting provider): This is a 66 y/o female with PMHx of HTN, Dyslipidemia and other problems as outlined below who presents to the ED c/o elevated BP for couple weeks. Pt reports that over the past couple weeks her BP has been elevated. Pt has a history of HTN. She had been taking atenolol 25 mg daily and losartan 50 mg daily however last week her PCP increased her atenolol to 50mg BID, discontinued her losartan and started valsartan 160mg daily. Pt states that her blood pressure has not been under control since she started the new regimen. The highest reading she recorded was 220/160 last night. This morning her BP was still 220/140. She began experiencing hot flashes, diaphoresis, SANCHEZ ( occipital) and blurred vision. Around 0930, pt developed acute onset L arm weakness and "heaviness" with some numbness in her fingers. Sxs were assoc with difficulty swallowing and the L side of her face feeling "heavy" but she is not sure if she had any facial droop. These sxs persisted for a few minutes before resolving completely. Pt mentions that she has chronic neck pain and frequently experiences paresthesias and referred pain to the L arm however this was different. Pt has no personal history of CVA however she has a strong family history of CVA. Her father and brother both of strokes at 55 and 40 respectively. Mother had multiple TIAs. Pt currently lives at home alone. Pt denies diplopia, chest pain, SOB, wheezing, abd pain, N/V, bowel or bladder issues, LE edema, calf pain, lightheadedness/dizziness, difficulty speaking or difficulty ambulating. In the ED, BP is elevated. Labs reviewed are unremarkable. CT head and CXR are negative. Pt is currently feeling back to her baseline. She will be admitted for further evaluation and treatment. Physical Exam (per Admitting): General Appearance: WD/WN, no apparent distress, + pertinent finding (Pt is sitting up comfortably in bed ) Head: normocephalic, atraumatic Eyes: normal inspection, PERRL, EOMI, + pertinent finding (attempted fundoscopic exam; limited view of R eye appeared normal; L eye unable to visualize fundus) ENT: hearing grossly normal Neck: supple, no carotid bruits Respiratory/Chest: chest non-tender, lungs clear, normal breath sounds, no respiratory distress Cardiovascular: regular rate, rhythm, no edema, no murmur Abdomen/GI: normal bowel sounds, non tender, soft Back: normal inspection Extremities/Musculoskelatal: normal inspection, no calf tenderness, no pedal edema Neurologic/Psych: metal tube cutter II-XII nml as tested, no motor/sensory deficits, alert , normal mood/affect, oriented x 3 Skin: normal color, warm/dry Hospital Course LEFT ARM WEAKNESS (RESOLVED) LIKELY TRANSIENT ISCHEMIC ATTACK pt presented with L arm weakness/"heaviness" assoc with elevated BPs -pt is not a candidate for Tpa as sxs resolved prior to arrival - Brain MRI and MRA: unrevealing Echo: -- Conclusions -- * The left ventricle is normal in size. * There is moderate concentric left ventricular hypertrophy. * The left ventricular wall motion is normal. * Ejection Fraction = 65-70%. * The right ventricular systolic function is normal. * The interatrial septum is intact with no evidence for an atrial septal defect. * Injection of contrast documented no interatrial shunt. * No significant valvular disease. - Neurology consulted, recommended: Aspirin 81mg po daily Plavix 75mg po daily x 3 months then stop Lipitor outpatient Zio patch monitoring to r/o Arrhythmia ff up with Neurologist Dr. Manasa Toscano in 3-4 weeks - maintain good BP and other risk factor control UNCONTROLLED HYPERTENSION -pt reports BP ~220/160 at home; BP 150s/70s in ED -discontinue atenolol and valsartan -started HCTZ-losartan 50/12.5mg and amlodipine 5mg po - improving HYPERLIPIDEMIA - TG 740, LDL unmeasurable - Lipitor started - monitor LFTs as outpatient GERD -cont PPI CHRONIC CERVICAL PAIN -s/p cervical fusion -cont Percocet PRN ANXIETY -pt reports feeling more anxious recently ( no new stressors) - Psych consulted and recommended to increase Paxil 20mg po daily continue outpatient follow up DISPO d/c home today ff up with PCP in 3-5 days ff up with Beadworker for outpatient cardiac monitoring ff up with Psychiatrist in 1 week Total time spent on discharge = 40 MINUTES This includes examination of the patient, discharge planning, medication reconciliation, and communication with other providers. Discharge Instructions Discharge Instructions Date of Service Oct 25, 2016. Admission Reason for Admission: TIA Discharge Discharge Diagnosis / Problem: POSSIBLE TRANSIENT ISCHEMIC ATTACK Discharge Goals Goal(s): Diagnostic testing, Therapeutic intervention Activity Recommendations Activity Limitations: as noted below (NO HEAVY EXERTION UNTIL RE-EVALUATED BY PRIMARY CARE PHYSICIAN) Driving or Machine Use: NO DRIVING UNTIL RE EVLUATED BY PRIMARY CARE PHYSICIAN . Instructions / Follow-Up Instructions / Follow-Up PLEASE REVIEW YOUR NEW MEDICATION LIST AND FOLLOW INSTRUCTIONS CAREFULLY. STOP PLAVIX AFTER 3 MONTHS UNLESS ADVISED BY YOUR DOCTOR. CALL PRIMARY CARE PHYSICIAN IF WITH DIZZINESS, WEAKNESS, MUSCLE ACHES. FURTHER INSTRUCTIONS NOTED BELOW. FOLLOW UP WITH PRIMARY CARE PHYSICIAN IN 3-5 DAYS. FOLLOW UP WITH MANAGEMENT REP FOR OUTPATIENT CARDIAC MONITORING. FOLLOW UP WITH PSYCHIATRIST IN 1 WEEK. Risk Factors for Stroke: You can reduce your chances of stroke by working with your medical provider to adopt a healthy lifestyle. Some specific ways to lower your chance of stroke are: * If you are a smoker, now is the time to stop smoking cigarettes * If you are diabetic, improve the control of your blood sugars * Avoid excessive amounts of alcohol * Control high blood pressure * Lose weight if you are overweight * Be sure to lead an active lifestyle * Eat a healthy diet low in salt, cholesterol and fat You should know about other risk factors for stroke that you are unable to control. These include: * Age 55 years or older * Male gender * Certain racial groups: , or / * Family History of Stroke, Mini stroke or Heart Attack * Sickle Cell Disease Follow Up: It is important for you to keep your follow up appointments with your medical provider. Current Hospital Diet Patient's current hospital diet: Regular Diet Discharge Diet Recommended Diet: AHA Diet (Heart Healthy) Pending Studies Studies pending at discharge: yes List of pending studies: OUTPATIENT CARDIAC MONITORING C/O MANAGEMENT REP Laboratory Results Hemoglobin A1c Test 10/23/16 12:40 Range/Units Estimated Average Glucose 120 mg/dl Hemoglobin A1c 5.8 H 4.5-5.6 % Lipid Panel Test 10/24/16 05:23 Range/Units Triglycerides Level 740 H 0-150 mg/dl Cholesterol Level 249 H 0-200 mg/dl HDL Cholesterol 39 mg/dl Cholesterol/HDL Ratio 6.4 LDL Cholesterol, Calculated mg/dl Medical Emergencies . Who to Call and When: Medical Emergencies: Call 911 immediately if you experience any of the following warning signs and symptoms of Stroke: * Sudden numbness or weakness of the face, arm or leg, especially on one side of the body * Sudden confusion, trouble speaking or understanding * Sudden trouble seeing in one or both eyes * Sudden trouble walking, dizziness, loss of balance or coordination * Sudden severe headache with no cause Do not delay calling 911 if you experience any warning signs or symptoms of a stroke. Delay in seeking medical attention may affect what treatments can be given to you. . Non-Emergent Contact Non-Emergency issues call your: Primary Care Provider Call Non-Emergent contact if: you have a fever, your pain is not controlled, you have any medication questions . Past History Medical & Surgical History: (1) Headache (2) Hypertension (3) Major depressive disorder, recurrent episode with anxious distress (4) GERD (gastroesophageal reflux disease) (5) HTN (hypertension) (6) Panic disorder (7) Dyslipidemia (8) Chronic neck pain (9) Left arm weakness (10) History of hysterectomy (11) History of cholecystectomy (12) History of carpal tunnel surgery (13) History of appendectomy (14) S/P cervical spinal fusion . "Provider Documentation" section prepared by Berry Martinez. Stroke Core Measures Reason no t-PA for Stroke: Treatment not indicated Reason no antithrom by day 2: Treatment provided - N/A Reason no antithrom at D/C: Treatment provided - N/A Reason no statin at D/C: Treatment provided - N/A Reason no anticoag w/a fib: Treatment not indicated VTE Core Measure Inpt VTE Proph given/why not?: Enoxaparin (Lovenox)SQ [place] Drug Monitoring Program Search Results: patient reviewed within database, no issues identified
[2016-10-25 14:33] VITALS: BP 103/50; PULSE 59; TEMP 36.6; O2SAT 94
[2016-10-26] MEDS ORDERED: PAROXETINE 20 MG TAB PO SCH (09:00)
--- NOTE | 2016-10-28 11:46 | EDITING REQUIRED CODING QUERY ---
TIA CLARIFICATION Diagnoses such as rule out, possible, likely, or consistent with cannot be coded on an outpatient/observation basis. Please clarify below the presence of the TIA: (X ) TIA was present during this admission ( ) TIA was ruled out during this admission ( ) TIA could not be confirmed during this admission. ( ) Other, please clarify: Thank you for your assistance, Kimberly Atkinson - Nurse Ldr
[2017-04-30] MEDS ORDERED: CIPR-255 PO (10:17)
== END 2016-10-25 14:50 | disposition home or self-care (01) ==
LOC: ENRESERVTM → ENRESERVDT → EDBD 11:29 → C.EDB 11:31 → C.2T 17:50
PROVIDERS: ADMIT Internal Medicine; ATTEND Internal Medicine
DX: G45.9 Transient cerebral ischemic attack, unspecified (principal); K21.9 Gastro-esophageal reflux disease without esophagitis; I10 Essential (primary) hypertension; E78.5 Hyperlipidemia, unspecified; F33.9 Major depressive disorder, recurrent, unspecified; M54.2 Cervicalgia; G89.29 Other chronic pain; F41.9 Anxiety disorder, unspecified; Z98.1 Arthrodesis status; Z90.710 Acquired absence of both cervix and uterus; Z90.49 Acquired absence of other specified parts of digestive tract; Z86.73 Personal history of transient ischemic attack (TIA), and cerebral infarction without residual deficits; Z87.891 Personal history of nicotine dependence; Z82.49 Family history of ischemic heart disease and other diseases of the circulatory system; Z82.3 Family history of stroke; Z79.899 Other long term (current) drug therapy

== ENCOUNTER 2017-03-24 12:08 | Emergency (ER) | payer OTHER ==
[~2017-03-24] VITALS: Ht 157.5 cm; Wt 69.4 kg
[~2017-03-24 12:08] MED LIST changes: +ASPEC81 PO; +CHOL1000 PO; -CYAN3INJ INJ; +CYAN500T13 PO; +LOSA50TA55 PO; -LOSA50TA6 PO; +LPT40 PO; -METH10CO2 PO; +NRV5 PO; -PARO10TA PO; +PLV75 PO; +PXL20 PO
[2017-03-24 12:21] VITALS: TEMP 36.7; Ht 157.5 cm; Wt 69.4 kg
[2017-03-24] MEDS ORDERED: SODIUM CHLORIDE 0.9% 1000ML 1,000 ML IV STA (12:57)
[2017-03-24] MEDS ORDERED: MoRPHine SULFATE 10 MG/ML CARP/VIAL IV STA (12:57)
[2017-03-24] MEDS ORDERED: ONDANSETRON INJ 2 MG/ML 2 ML VIAL IV STA (12:57)
[2017-03-24 13:30] LABS: BASO % 0.2 %; BASO ABS # 0.02 K/uL (0-0.2); COMPLETE YES; EOS % 0.6 %; HEMATOCRIT 44.2 % (37-47); IG% 0.2 %; LYMPH % 19.9 %; LYMPH ABS # 2.63 K/uL (1.2-3.4); MEAN CELL VOLUME 87.9 fL (80-100); MEAN CORPUSCULAR HEMOGLOBIN 30.6 pg (25-34); MEAN CORPUSCULAR HGB CONC 34.8 g/dl (32-36); MEAN PLATELET VOLUME 9.5 fL (7.4-10.4); MONO % 12.9 %; NEUT % 66.2 %; PLATELET COUNT 220 K/uL (130-400); RED BLOOD COUNT 5.03 M/uL (4.2-5.4); WHITE BLOOD COUNT 13.19 K/uL (4.8-10.8)
[2017-03-24 13:42] VITALS: O2SAT 94
[2017-03-24] MEDS ORDERED: OPTIRAY 320 IV PRN (13:45)
[2017-03-24 13:48] LABS: BUN/CREATININE RATIO 10.3 (10-20); CALCIUM 9.8 mg/dl (8.5-10.1); CREATININE 0.9 mg/dl (0.60-1.20); POTASSIUM 3.6 mmol/L (3.5-5.1)
[2017-03-24 14:51] LABS: PREG INTERNAL NEGATIVE QC NEG CLEAR BACKGROUND; PREG INTERNAL POSITIVE QC POS CONTROL LINE
[2017-03-24 15:09] LABS: URINE APPEARANCE CLEAR (CLEAR); URINE BILIRUBIN NEG (NEG); URINE COLOR YELLOW; URINE EPITHELIAL CELL AUTO 0-5 /lpf (0-5); URINE NITRITE NEG (NEG); URINE PH 6.5 (4.5-7.5); UROBILINOGEN NEG (NEG); ZZUR CULT IF INDIC CLEAN CATCH NO
[2017-03-24 15:19] LABS: MANUAL MICROSCOPIC REQUIRED? NO; REVIEW REQ? NO
--- NOTE | 2017-03-24 15:36 | DIAGNOSTIC IMAGING REPORT ---
ABD/PELVIS IV CONTRAST ONLY CLINICAL HISTORY: 66 years-old Female presenting with rlq abd pain . TECHNIQUE: Multidetector CT of the abdomen and pelvis was performed after the administration of intravenous contrast. IV contrast: 116 mL of Omnipaque 320. A dose lowering technique was used consistent with the principles of ALARA (as low as reasonably achievable). COMPARISON: None. CT DOSE (mGy.cm): The estimated cumulative dose is 319.43 mGy.cm. FINDINGS: Broom Maker topogram: Unremarkable. Lung bases: Dependent subpleural changes at the lung bases, likely atelectasis. Normal heart size. Few prominent pericardial lymph nodes, nonspecific. No pericardial or pleural effusion. Liver: Normal morphology. Suggestion of hepatic steatosis. No focal liver lesion. Patent hepatic vasculature. Biliary: Mild intrahepatic and moderate extra hepatic biliary ductal prominence, likely a reservoir effect in the post cholecystectomy state. A benign stricture at the ampulla Vater is also possible contributory etiology given the slight greater degree of extra hepatic ductal dilatation and expected. Gallbladder surgically absent. Pancreas: Mild atrophy of the pancreatic head parenchyma. No focal mass lesion. Spleen: Normal. Adrenal glands: Normal. Kidneys and ureters: No nephrolithiasis. No hydronephrosis. Few tiny hypodensities in the right kidney, too small to characterize but likely cysts. Ureters normal. Gastrointestinal tract: Appendix nonvisualized. However, no inflammatory changes in the right lower quadrant. No bowel obstruction. Duodenal diverticulum noted at the pancreatic head. Peritoneal cavity: Minimal infiltration of the small bowel mesentery, possibly mild mesenteric panniculitis. Bladder: Normal. Pelvic organs: Uterus surgically absent. Vasculature: Mild atherosclerosis of the normal caliber abdominal aorta. IVC patent. Lymph nodes: Few prominent subcentimeter retroperitoneal lymph nodes noted, nonspecific and possibly reactive. Additional prominent portacaval lymph node may also be reactive. Abdominal wall: Diastases of the abdominis rectus. Postsurgical change along the right upper quadrant likely from prior cholecystectomy. Musculoskeletal: Degenerative changes of the spine. Heterogeneity of the posterior aspect of the right ilium may represent posttraumatic deformity. Heterogeneous subchondral sclerosis in the left femoral head, likely degenerative in etiology. IMPRESSION: 1. No evidence of appendicitis or acute intra-abdominal pathology. 2. Hepatic steatosis. 3. Suggestion of mild mesenteric panniculitis. Although frequently asymptomatic, this can be a source of abdominal pain in some patients. Electronically signed by: Butch Miranda M.D. 03/24/2017 3:35 PM Dictated Date/Time: 03/24/2017 3:26 PM
[2017-03-24] MEDS ORDERED: OXYC1TAB3 PO (16:34)
[2017-03-24 16:45] VITALS: BP 159/82; PULSE 68; O2SAT 94
--- NOTE | 2017-03-24 19:19 | EMERGENCY ROOM VISIT NOTE ---
History Report prepared by Brandon: William Sanches Under the Supervision of: Dr. Yuniel Harris D.O. First contact with patient: 12:36 Chief Complaint: ABDOMINAL PAIN Stated Complaint: STOMACH PAIN History of Present Illness The patient is a 66 year old female who presents to the Emergency Room with complaints of intermittent epigastrium and right flank abdominal pain that began a couple months ago. However, she states that her pain occurred last night and has not gone away like it usually does. She rates her pain a 9/10 in severity. She tends to get the pain multiple times a week since a couple of months ago. She states that nothing in particular brings it on. She does note that whenever she takes a drink she feels like something is stuck, then the pain occurs. Her last bowel movement was yesterday and notes that it was diarrhea. She has not passed gas since then. She denies melena or hematochezia. She has a history of a complete hysterectomy, appendectomy, and cholecystectomy. Source of History: patient Onset: couple of months ago, acutely yesterday Position: abdomen (epigastrium), back (right flank) Symptom Intensity: 9/10 Quality: sharp Timing: constant Associated Symptoms: + diarrhea, No melena, No hematochezia Review of Systems See HPI for pertinent positives & negatives. A total of 10 systems reviewed and were otherwise negative. Past Medical & Surgical Medical Problems: (1) Chronic neck pain (2) Dyslipidemia (3) GERD (gastroesophageal reflux disease) (4) HTN (hypertension) (5) Major depressive disorder, recurrent episode with anxious distress (6) Panic disorder Surgical Problems: (1) History of appendectomy (2) History of carpal tunnel surgery (3) History of cholecystectomy (4) History of hysterectomy (5) S/P cervical spinal fusion Family History Cancer Hypertension Stroke Social History Smoking Status: Former Smoker Alcohol Use: none Drug Use: none Marital Status: Housing Status: lives alone Occupation Status: unemployed Current/Historical Medications Scheduled Amlodipine Besylate (Amlodipine Besylate), 5 MG PO QAM Ascorbic Acid (Ascorbic Acid), 500 MG PO DAILY Aspirin (Aspirin EC Low Dose), 81 MG PO QAM Atorvastatin (Atorvastatin Calcium), 40 MG PO QPM Cholecalciferol (Vitamin D3), 1 TAB PO DAILY Losartan Potassium & Hydrochlo (Losartan Potassium/Hydroc), 1 TAB PO QAM [place]-3 Fatty Acids (Fish Oil), 1 CAP PO DAILY Omeprazole (Prilosec), 40 MG PO DAILY Paroxetine (Paroxetine HCl), 20 MG PO DAILY Vitamin E (Vitamin E 400 Iu), 400 INTER.UNIT PO DAILY Scheduled PRN Oxycodone Immediate Rel Tab (Roxicodone Ir), 5 MG PO Q6H PRN for Pain Oxycodone/Acetaminophen 10MG/325MG (Percocet 10MG/325MG), 50 MG PO Q6H PRN for Pain Allergies Coded Allergies: Propoxyphene (Verified Allergy, Intermediate, TACHYCARDIA, 10/23/16) Physical Exam Vital Signs Date Time Temp Pulse Resp B/P (MAP) Pulse Ox O2 Delivery O2 Flow Rate FiO2 03/24/17 16:45 68 18 159/82 94 03/24/17 15:05 65 18 121/65 92 Room Air 03/24/17 13:42 94 Nasal Cannula 2.0 03/24/17 13:41 16 138/78 93 Room Air 03/24/17 12:21 36.7 69 20 145/81 97 Room Air Physical Exam GENERAL: alert, well appearing, well nourished, minimal distress, non-toxic, sitting up in bed. EYE EXAM: normal conjunctiva OROPHARYNX: no exudate, no erythema, lips, buccal mucosa, and tongue normal and mucous membranes are moist NECK: supple, no nuchal rigidity, no adenopathy, non-tender LUNGS: Clear to auscultation. Normal chest wall mechanics HEART: no murmurs, S1 normal and S2 normal ABDOMEN: abdomen soft, minimal tenderness to the epigastrium/RUQ that is tracking into the right flank, normo-active bowel sounds, no masses, no rebound or guarding. BACK: Back is symmetrical on inspection and there is no deformity, no midline tenderness, no CVA tenderness. SKIN: no rashes and no bruising UPPER EXTREMITIES: upper extremities are grossly normal. LOWER EXTREMITIES: No pitting edema. NEURO EXAM: Normal sensorium, cranial nerves II-XII grossly intact, normal speech, no gross weakness of arms, no gross weakness of legs. Medical Decision & Procedures ER Provider Diagnostic Interpretation: Radiology results as stated below per my review and the radiologist's interpretation: ABD/PELVIS IV CONTRAST ONLY CLINICAL HISTORY: 66 years-old Female presenting with rlq abd pain . TECHNIQUE: Multidetector CT of the abdomen and pelvis was performed after the administration of intravenous contrast. IV contrast: 116 mL of Omnipaque 320. A dose lowering technique was used consistent with the principles of ALARA (as low as reasonably achievable). COMPARISON: None. CT DOSE (mGy.cm): The estimated cumulative dose is 319.43 mGy.cm. FINDINGS: Pediatrician Active Practice topogram: Unremarkable. Lung bases: Dependent subpleural changes at the lung bases, likely atelectasis. Normal heart size. Few prominent pericardial lymph nodes, nonspecific. No pericardial or pleural effusion. Liver: Normal morphology. Suggestion of hepatic steatosis. No focal liver lesion. Patent hepatic vasculature. Biliary: Mild intrahepatic and moderate extra hepatic biliary ductal prominence, likely a reservoir effect in the post cholecystectomy state. A benign stricture at the ampulla Vater is also possible contributory etiology given the slight greater degree of extra hepatic ductal dilatation and expected. Gallbladder surgically absent. Pancreas: Mild atrophy of the pancreatic head parenchyma. No focal mass lesion. Spleen: Normal. Adrenal glands: Normal. Kidneys and ureters: No nephrolithiasis. No hydronephrosis. Few tiny hypodensities in the right kidney, too small to characterize but likely cysts. Ureters normal. Gastrointestinal tract: Appendix nonvisualized. However, no inflammatory changes in the right lower quadrant. No bowel obstruction. Duodenal diverticulum noted at the pancreatic head. Peritoneal cavity: Minimal infiltration of the small bowel mesentery, possibly mild mesenteric panniculitis. Bladder: Normal. Pelvic organs: Uterus surgically absent. Vasculature: Mild atherosclerosis of the normal caliber abdominal aorta. IVC patent. Lymph nodes: Few prominent subcentimeter retroperitoneal lymph nodes noted, nonspecific and possibly reactive. Additional prominent portacaval lymph node may also be reactive. Abdominal wall: Diastases of the abdominis rectus. Postsurgical change along the right upper quadrant likely from prior cholecystectomy. Musculoskeletal: Degenerative changes of the spine. Heterogeneity of the posterior aspect of the right ilium may represent posttraumatic deformity. Heterogeneous subchondral sclerosis in the left femoral head, likely degenerative in etiology. IMPRESSION: 1. No evidence of appendicitis or acute intra-abdominal pathology. 2. Hepatic steatosis. 3. Suggestion of mild mesenteric panniculitis. Although frequently asymptomatic, this can be a source of abdominal pain in some patients. Electronically signed by: Butch Miranda M.D. 03/24/2017 3:35 PM Dictated Date/Time: 03/24/2017 3:26 PM Laboratory Results 03/24/17 13:12 Red Blood Count 5.03, Mean Corpuscular Volume 87.9, Mean Corpuscular Hemoglobin 30.6, Mean Corpuscular Hemoglobin Concent 34.8, Mean Platelet Volume 9.5, Neutrophils (%) (Auto) 66.2, Lymphocytes (%) (Auto) 19.9, Monocytes (%) (Auto) 12.9, Eosinophils (%) (Auto) 0.6, Basophils (%) (Auto) 0.2, Neutrophils # (Auto ) 8.73, Lymphocytes # (Auto) 2.63, Monocytes # (Auto) 1.70, Eosinophils # (Auto ) 0.08, Basophils # (Auto) 0.02 03/24/17 13:12 Test 03/24/17 12:35 03/24/17 13:12 03/24/17 15:58 Urine Color YELLOW Urine Appearance CLEAR (CLEAR) Urine pH 6.5 (4.5-7.5) Urine Specific [place] 1.010 (1.000-1.030) Urine Protein NEG (NEG) Urine Glucose (UA) NEG (NEG) Urine Ketones NEG (NEG) Urine Occult Blood TRACE (NEG) Urine Nitrite NEG (NEG) Urine Bilirubin NEG (NEG) Urine Urobilinogen NEG (NEG) Urine Leukocyte Esterase NEG (NEG) Urine WBC (Auto) 0 /hpf (0-5) Urine RBC (Auto) 0-4 /hpf (0-4) Urine Hyaline Casts (Auto) 0 /lpf (0-5) Urine Epithelial Cells (Auto) 0-5 /lpf (0-5) Urine Bacteria (Auto) NEG (NEG) Urine Test NEG (NEG) White Blood Count 13.19 K/uL (4.8-10.8) Red Blood Count 5.03 M/uL (4.2-5.4) Hemoglobin 15.4 g/dL (12.0-16.0) Hematocrit 44.2 % (37-47) Mean Corpuscular Volume 87.9 fL (80-100) Mean Corpuscular Hemoglobin 30.6 pg (25-34) Mean Corpuscular Hemoglobin Concent 34.8 g/dl (32-36) Platelet Count 220 K/uL (130-400) Mean Platelet Volume 9.5 fL (7.4-10.4) Neutrophils (%) (Auto) 66.2 % Lymphocytes (%) (Auto) 19.9 % Monocytes (%) (Auto) 12.9 % Eosinophils (%) (Auto) 0.6 % Basophils (%) (Auto) 0.2 % Neutrophils # (Auto) 8.73 K/uL (1.4-6.5) Lymphocytes # (Auto) 2.63 K/uL (1.2-3.4) Monocytes # (Auto) 1.70 K/uL (0.11-0.59) Eosinophils # (Auto) 0.08 K/uL (0-0.5) Basophils # (Auto) 0.02 K/uL (0-0.2) RDW Standard Deviation 39.8 fL (36.4-46.3) RDW Coefficient of Variation 12.4 % (11.5-14.5) Immature Granulocyte % (Auto) 0.2 % Immature Granulocyte # (Auto) 0.03 K/uL (0.00-0.02) Anion Gap 6.0 mmol/L (3-11) Est Creatinine Clear Calc Drug Dose 56.9 ml/min Estimated GFR () 77.8 Estimated GFR (Non- 67.1 BUN/Creatinine Ratio 10.3 (10-20) Calcium Level 9.8 mg/dl (8.5-10.1) Total Bilirubin 0.8 mg/dl (0.2-1) Direct Bilirubin 0.1 mg/dl (0-0.2) Aspartate Amino Transf (AST/SGOT) 21 U/L (15-37) Alanine Aminotransferase (ALT/SGPT) 26 U/L (12-78) Alkaline Phosphatase 90 U/L (45-117) Total Protein 8.6 gm/dl (6.4-8.2) Albumin 4.2 gm/dl (3.4-5.0) Lipase 108 U/L (73-393) Lactic Acid Level 0.8 mmol/L (0.4-2.0) Laboratory results per my review. Medications Administered Medications (Trade) Dose Ordered Sig/Silverio Route Start Time Stop Time Status Last Admin Dose Admin Sodium Chloride 1,000 ml @ 999 mls/hr Q1H1M STAT IV 03/24/17 12:57 03/24/17 13:57 DC 03/24/17 13:37 999 MLS/HR Ondansetron HCl (Zofran Inj) 4 mg NOW STAT IV 03/24/17 12:57 03/24/17 12:59 DC 03/24/17 13:34 4 MG Morphine Sulfate (MoRPHine SULFATE INJ) 6 mg NOW STAT IV 03/24/17 12:57 03/24/17 12:59 DC 03/24/17 13:34 6 MG ED Course ED COURSE: Vital signs were reviewed and showed hypertension. The patients medical record was reviewed The above diagnostic studies were performed and reviewed. ED treatments and interventions as stated above. 1236: The patient was evaluated in room A4B. A complete history and physical examination was performed. 1257: Ordered Morphine Sulfate 6 mg IV, Zofran Inj 4 mg IV, Sodium Chloride 1000 ml @ 999 mls/hr IV 1655: Upon reevaluation, the patient is resting. I discussed my findings with the patient and she understands and agrees with the treatment plan. The patient remained stable while under my care. The patient appeared well at the time of discharge. Medical Decision Differential diagnoses includes but is not limited to gastritis, peptic ulcer disease, GERD, gallbladder disease, pancreatitis, small bowel obstruction, acute coronary syndrome, pericarditis, ischemic bowel, irritable bowel disease, irritable bowel syndrome, appendicitis, diverticulitis, malignancy, hernia, urinary tract infection, torsion, /ectopic , perforation, trauma, infectious. Patient is a 66-year-old female who presents the ER for right upper quadrant abdominal pain with a previous hip history of appendectomy, cholecystectomy and complete hysterectomy. Labs were obtained and showed a mild leukocytosis. She is given IV fluids and morphine with significant improvement of her pain. CBC along with BMP, LFTs, bilirubin and lipase is unremarkable. Lactic acid was normal. UA was negative. was negative. CT of the abdomen and pelvis shows mild mesenteric panniculitis. It is otherwise unremarkable. There is no signs of any ischemia. I discussed case with GI who agreed with outpatient follow-up with PCP. Discussed with Pt concerning signs and symptoms to watch out for. Pt was instructed to follow up with their PCP and discussed with the patient their option to return to the ED at anytime for persistent or worsening symptoms. The appropriate anticipatory guidance and out-patient management, including indications for return to the emergency department, were explained at length to the patient and understood. [place] Drug Monitoring Program Search Results: patient reviewed within database, no issues identified Medication Reconcilliation Current Medication List: was personally reviewed by me Blood Pressure Screening Patient's blood pressure: Elevated blood pressure Blood pressure disposition: Elevated BP felt to be situational Impression Primary Impression: Panniculitis Additional Impression: Abdominal pain Scribe Attestation The scribe's documentation has been prepared under my direction and personally reviewed by me in its entirety. I confirm that the note above accurately reflects all work, treatment, procedures, and medical decision making performed by me. Departure Information Dispostion Home / Self-Care Prescriptions Oxycodone Immediate Rel Tab (ROXICODONE IR) 5 Mg Tab 5 MG PO Q6H Y for Pain, #10 TAB Prov: Yuniel Harris, DO 03/24/17 Referrals No Doctor, Assigned (PCP) Forms HOME CARE DOCUMENTATION FORM, IMPORTANT VISIT INFORMATION Patient Instructions Abdominal Pain - [facility], [facility] Additional Instructions Please follow up with your primary care doctor or if you are a student, [facility] with in the next 24 hours. Any worsening of your symptoms, please return to the ED immediately. This includes any fevers greater than 100.4, worsening pain, chest pain, shortness breath, persistent nausea, vomiting, unable to eat or drink, or any other concerning signs or symptoms from your standpoint. You were given medications during this visit that will inhibit your ability to drive, operate machinery and work. Please do NOT drive, operate machinery or work for the next 12hrs. You were also given a prescription for a narcotic. While taking this medication you should also not drive, operate machinery and or work. Problem Qualifiers Additional Impression: Abdominal pain Abdominal location: unspecified location Qualified Codes: R10.9 - Unspecified abdominal pain
[2017-04-30] MEDS ORDERED: CIPR-255 PO (10:17)
== END 2017-03-24 16:45 | disposition home or self-care (01) ==
LOC: C.EDB 12:09 → C.EDA 16:45
DX: M79.3 Panniculitis, unspecified (principal); R10.9 Unspecified abdominal pain; R19.7 Diarrhea, unspecified; I10 Essential (primary) hypertension; E78.5 Hyperlipidemia, unspecified; F32.9 Major depressive disorder, single episode, unspecified; K21.9 Gastro-esophageal reflux disease without esophagitis; Z87.891 Personal history of nicotine dependence; Z90.710 Acquired absence of both cervix and uterus; Z90.49 Acquired absence of other specified parts of digestive tract; Z90.89 Acquired absence of other organs; Z98.1 Arthrodesis status; Z82.49 Family history of ischemic heart disease and other diseases of the circulatory system; Z82.3 Family history of stroke; Z79.82 Long term (current) use of aspirin; Z79.899 Other long term (current) drug therapy

== ENCOUNTER 2017-04-28 06:47 | Inpatient (IN) | payer OTHER ==
[~2017-04-28] VITALS: Ht 157.5 cm; Wt 73.0 kg
[~2017-04-28 06:47] MED LIST changes: -CYAN500T13 PO; +OXYC1TAB3 PO; -PLV75 PO
[2017-04-28] MEDS ORDERED: SODIUM CHLORIDE 0.9% 1000ML 500 ML IV STA (07:03)
[2017-04-28] MEDS ORDERED: KETOROLAC TROMETHAMINE 30 MG/ML VIAL IV STA (07:03)
--- NOTE | 2017-04-28 07:13 | EMERGENCY ROOM VISIT NOTE ---
History Report prepared by Brandon: Cara Hawkins Under the Supervision of: Dr. Emerson Singh M.D. First contact with patient: 07:01 Chief Complaint: FLANK PAIN Stated Complaint: FLANK PAIN/HEMATURIA History of Present Illness The patient is a 66 year old female who presents to the Emergency Room with complaints of persistent right flank pain that began yesterday. She currently rates her discomfort as a 10/10 in severity. The patient reports that intermittently over the past several days she has experienced nausea. She states that yesterday she developed right flank pain and burning with urination. The patient additionally reports hematuria. She states that early this morning she was woken with worsened right flank pain. The patient states that she felt nauseous, but denies any vomiting. She reports a previous medical history of kidney stones many years ago. Per nursing staff the patient received 4 mg of Zofran and 4 mg of Morphine for her pain. The patient reports that the Morphine helped to alleviate her symptoms. Source of History: patient, nursing staff Onset: yesterday Position: other (right flank) Symptom Intensity: 10/10 Timing: other (persistent) Modifying Factors (Relieving): other (morphine) Associated Symptoms: + nausea, + urinary symptoms (hematuria, burning with urination), No vomiting Review of Systems See HPI for pertinent positives & negatives. A total of 10 systems reviewed and were otherwise negative. Past Medical & Surgical Medical Problems: (1) Chronic neck pain (2) Dyslipidemia (3) GERD (gastroesophageal reflux disease) (4) HTN (hypertension) (5) Major depressive disorder, recurrent episode with anxious distress (6) Panic disorder Surgical Problems: (1) History of appendectomy (2) History of carpal tunnel surgery (3) History of cholecystectomy (4) History of hysterectomy (5) S/P cervical spinal fusion Family History Cancer Hypertension Stroke Social History Smoking Status: Never Smoker Alcohol Use: none Drug Use: none Marital Status: Housing Status: lives alone Occupation Status: unemployed Current/Historical Medications Scheduled Amlodipine Besylate (Amlodipine Besylate), 5 MG PO QAM Ascorbic Acid (Vitamin C), 500 MG PO DAILY Aspirin (Aspirin EC Low Dose), 81 MG PO QAM Hctz/Losartan (Hyzaar 12.5MG/50MG), 1 TAB PO DAILY Linaclotide (Linzess), 145 MCG PO DAILY Metoprolol Succinate (Toprol Xl), 25 MG PO DAILY Milk Thistle (Silybum Marianum (Milk Thistle), 350 MG PO DAILY [place]-3 Fatty Acids (Fish Oil), 1 CAP PO DAILY Omeprazole (Prilosec), 40 MG PO DAILY Paroxetine Hcl (Paxil), 10 MG PO DAILY Vitamin E (Vitamin E 400 Iu), 400 INTER.UNIT PO DAILY Scheduled PRN Oxycodone Hcl (Oxycontin), 15 MG PO QID PRN for Pain Allergies Coded Allergies: Propoxyphene (Verified Allergy, Intermediate, TACHYCARDIA, 04/28/17) Physical Exam Vital Signs Date Time Temp Pulse Resp B/P (MAP) Pulse Ox O2 Delivery O2 Flow Rate FiO2 04/28/17 08:30 60 13 93 04/28/17 08:29 60 16 128/53 93 Room Air 04/28/17 08:28 128/53 04/28/17 08:00 71 17 92 04/28/17 07:30 69 19 92 04/28/17 07:25 71 04/28/17 07:18 131/63 04/28/17 06:56 36.8 74 16 131/71 92 Room Air Physical Exam GENERAL: Patient is in no acute distress. HEENT: No acute trauma, normocephalic atraumatic, mucous membranes moist, no nasal congestion, no scleral icterus. NECK: No stridor, no adenopathy, no meningismus, trachea is midline. LUNGS: Clear to auscultation bilaterally, no wheeze, no rhonchi, breath sounds equal. HEART: Without murmurs gallops or rubs, regular rate and rhythm. ABDOMEN: Soft, nontender, bowel sounds positive, no hernias, no peritonitis. BACK: Right flank discomfort with percussion. EXTREMITIES: No cyanosis or edema, full range of motion of all the joints without pain or difficulty, no signs for acute trauma. NEUROLOGIC: Oriented x 3, no acute motor or sensory deficits, no focal weakness. SKIN: No rash, no jaundice, no diaphoresis. Medical Decision & Procedures ER Provider Diagnostic Interpretation: Radiology results as stated below per my review and radiologist interpretation: ABD/PELVIS WITHOUT FOR STONE CT DOSE: 964.30 mGycm HISTORY: Flank pain EVALUATE FLANK PAIN/HEMATURIA TECHNIQUE: Multiaxial CT images of the abdomen and pelvis were performed without the use of intravenous and oral contrast according to the standard department stone protocol. A dose lowering technique was utilized adhering to the principles of ALARA. COMPARISON STUDY: 03/24/2017 FINDINGS: Lung bases are clear. Mild fatty infiltration liver. Prior cholecystectomy. Chronic post operative biliary ductal prominence unchanged. Pancreas is unremarkable. Kidneys negative for calcification or hydronephrosis. Small cyst inferior pole right kidney unchanged. No evidence for renal hydronephrosis. Bowel pattern is considered nonobstructive. Prior appendectomy. Bladder is midline. Suggestion of slight degree of wall thickening of the sigmoid versus technical artifact due to lack of distention. Bladder is midline. There are no contained calcifications. IMPRESSION: 1. No evidence for an obstructing urinary tract calculus. 2. Slight wall thickening of the sigmoid consistent with mild colitis versus technical lack of distention. 2. Study is otherwise negative post cholecystectomy and appendectomy. The above report was generated using voice recognition software. It may contain grammatical, syntax or spelling errors. Electronically signed by: Eliezer Carrington M.D. 04/28/2017 8:05 AM Dictated Date/Time: 04/28/2017 7:59 AM Laboratory Results 04/28/17 07:42 04/28/17 07:42 Test 04/28/17 07:10 04/28/17 07:42 Urine Color RED Urine Appearance CLOUDY (CLEAR) Urine pH 5.0 (4.5-7.5) Urine Specific [place] <= 1.005 (1.000-1.030) Urine Protein 2+ (NEG) Urine Glucose (UA) NEG (NEG) Urine Ketones NEG (NEG) Urine Occult Blood 3+ (NEG) Urine Nitrite NEG (NEG) Urine Bilirubin NEG (NEG) Urine Urobilinogen NEG (NEG) Urine Leukocyte Esterase MODERATE (NEG) Urine RBC >30 /hpf (0-4) Urine WBC >30 /hpf (0-5) Urine Epithelial Cells 5-10 /lpf (0-5) Urine Bacteria NEG (NEG) Red Blood Count 4.43 M/uL (4.2-5.4) Mean Corpuscular Volume 88.0 fL (80-100) Mean Corpuscular Hemoglobin 30.5 pg (25-34) Mean Corpuscular Hemoglobin Concent 34.6 g/dl (32-36) RDW Standard Deviation 40.4 fL (36.4-46.3) RDW Coefficient of Variation 12.6 % (11.5-14.5) Mean Platelet Volume 9.3 fL (7.4-10.4) Prothrombin Time 10.6 SECONDS (9.0-12.0) Prothromb Time International Ratio 1.0 (0.9-1.1) Activated Partial Thromboplast Time 27.1 SECONDS (21.0-31.0) Partial Thromboplastin Ratio 1.0 Anion Gap 7.0 mmol/L (3-11) Est Creatinine Clear Calc Drug Dose 61.7 ml/min Estimated GFR () 83.3 Estimated GFR (Non- 71.9 BUN/Creatinine Ratio 9.6 (10-20) Calcium Level 8.8 mg/dl (8.5-10.1) Total Bilirubin 0.4 mg/dl (0.2-1) Aspartate Amino Transf (AST/SGOT) 19 U/L (15-37) Alanine Aminotransferase (ALT/SGPT) 21 U/L (12-78) Alkaline Phosphatase 76 U/L (45-117) Total Protein 6.9 gm/dl (6.4-8.2) Albumin 3.6 gm/dl (3.4-5.0) Globulin 3.3 gm/dl (2.5-4.0) Albumin/Globulin Ratio 1.1 (0.9-2) Lipase 135 U/L (73-393) Laboratory results reviewed by me. Medications Administered Medications (Trade) Dose Ordered Sig/Silverio Route Start Time Stop Time Status Last Admin Dose Admin Sodium Chloride 500 ml @ 999 mls/hr Q31M STAT IV 04/28/17 07:03 04/28/17 07:33 DC 04/28/17 07:03 999 MLS/HR Ketorolac Tromethamine (Toradol Inj) 30 mg NOW STAT IV 04/28/17 07:03 04/28/17 07:06 DC 04/28/17 07:14 30 MG Morphine Sulfate (MoRPHine SULFATE INJ) 4 mg Q15M PRN IV 04/28/17 07:15 05/12/17 07:14 04/28/17 08:38 4 MG Ceftriaxone Sodium (Rocephin Inj) 1 gm NOW STAT IV 04/28/17 08:15 04/28/17 08:16 DC 04/28/17 08:38 1 GM ED Course 0702: The patient was evaluated in room B9. A complete history and physical exam was performed. 0703: Ordered Toradol Inj 30 mg IV, Sodium Chloride 500 ml @ 999 mls/hr IV. 0715: Ordered Morphine Sulfate 4 mg IV. 0815: Ordered Rocephin Inj 1 gm IV. 0832: I reevaluated the patient and she is resting. I discussed the exam findings with her and I discussed the treatment plan. She verbalized complete understanding and agreement. The patient will be evaluated for further treatment. 0838: I discussed the patients case with Morgan Bell. She is going to evaluate the patient for further treatment. Medical Decision The patient is a 66 year old female who presents to the ED with complaints of right flank pain. Differential diagnoses considered include Renal colic, renal failure, UTI, bowel obstruction, AAA, musculoskeletal pain, electrolyte imbalance. There is a moderate leukocytosis at 16,000, this could be consistent with infection. No concerning anemia. No significant electrolyte abnormality, kidney failure, hepatitis or pancreatitis. Urinalysis does suggest infection. Blood was noted in the urine as well. Urine culture is pending. Abdominal and pelvis CT does not show any evidence for hydronephrosis or for renal stone. There was no coagulopathy. The patient had already received morphine in route, she was still having pain. She was given IV morphine and IV Toradol. She received IV saline. Because of concerns for pyelonephritis, she received IV ceftriaxone. The patient is still uncomfortable. I am concerned about discharge, I doubt I will be able to control her pain as an outpatient. I do think a hospital stay is warranted. She is aware of all her findings. I spoke to case management. The on-call hospitalist was consulted. The patient has acute pyelonephritis, this appears to have caused her right flank pain. Medication Reconcilliation Current Medication List: was personally reviewed by me Blood Pressure Screening Patient's blood pressure: Elevated blood pressure Blood pressure disposition: Elevated BP felt to be situational, Did not require urgent referral Consults Time Called: 08 Consulting Physician: Morgan Bell Returned Call: 08 I discussed the patients case with Morgan Bell. She is going to evaluate the patient for further treatment. Impression Primary Impression: Right flank pain Additional Impression: Pyelonephritis Scribe Attestation The scribe's documentation has been prepared under my direction and personally reviewed by me in its entirety. I confirm that the note above accurately reflects all work, treatment, procedures, and medical decision making performed by me. Departure Information Dispostion Being Evaluated By Hospitalist Referrals No Doctor, Assigned (PCP) Problem Qualifiers
[2017-04-28] MEDS: MoRPHine SULFATE 4 MG/ML 1 ML CARP\\VIAL IV PRN ×2 (07:14→08:38)
[2017-04-28 07:38] LABS: MANUAL MICROSCOPIC REQUIRED? YES; URINE APPEARANCE CLOUDY (CLEAR); URINE COLOR RED; URINE NITRITE NEG (NEG); URINE SPECIFIC GRAVITY <= 1.005 (1.000-1.030); UROBILINOGEN NEG (NEG)
[2017-04-28 07:40] LABS: REVIEW REQ? NO; URINE BILIRUBIN NEG (NEG)
[2017-04-28 07:44] LABS: URINE BACTERIA NEG (NEG); URINE RBC >30 /hpf (0-4); URINE WBC >30 /hpf (0-5); ZZUR CULT IF INDIC CLEAN CATCH YES
[2017-04-28 07:56] LABS: MEAN CORPUSCULAR HEMOGLOBIN 30.5 pg (25-34); MEAN CORPUSCULAR HGB CONC 34.6 g/dl (32-36); MEAN PLATELET VOLUME 9.3 fL (7.4-10.4); PLATELET COUNT 206 K/uL (130-400); RED BLOOD COUNT 4.43 M/uL (4.2-5.4); WHITE BLOOD COUNT 16.25 K/uL (4.8-10.8)
[2017-04-28 08:04] LABS: PROTHROMBIN TIME (PATIENT) 10.6 SECONDS (9.0-12.0)
--- NOTE | 2017-04-28 08:06 | DIAGNOSTIC IMAGING REPORT ---
ABD/PELVIS WITHOUT FOR STONE CT DOSE: 964.30 mGycm HISTORY: Flank pain EVALUATE FLANK PAIN/HEMATURIA TECHNIQUE: Multiaxial CT images of the abdomen and pelvis were performed without the use of intravenous and oral contrast according to the standard department stone protocol. A dose lowering technique was utilized adhering to the principles of ALARA. COMPARISON STUDY: 03/24/2017 FINDINGS: Lung bases are clear. Mild fatty infiltration liver. Prior cholecystectomy. Chronic post operative biliary ductal prominence unchanged. Pancreas is unremarkable. Kidneys negative for calcification or hydronephrosis. Small cyst inferior pole right kidney unchanged. No evidence for renal hydronephrosis. Bowel pattern is considered nonobstructive. Prior appendectomy. Bladder is midline. Suggestion of slight degree of wall thickening of the sigmoid versus technical artifact due to lack of distention. Bladder is midline. There are no contained calcifications. IMPRESSION: 1. No evidence for an obstructing urinary tract calculus. 2. Slight wall thickening of the sigmoid consistent with mild colitis versus technical lack of distention. 2. Study is otherwise negative post cholecystectomy and appendectomy. The above report was generated using voice recognition software. It may contain grammatical, syntax or spelling errors. Electronically signed by: Eliezer Carrington M.D. 04/28/2017 8:05 AM Dictated Date/Time: 04/28/2017 7:59 AM
[2017-04-28] MEDS ORDERED: HYZ/50125 PO (08:10)
[2017-04-28] MEDS ORDERED: LINA1CAP PO (08:10)
[2017-04-28] MEDS ORDERED: OXYC15TA89 PO (08:10)
[2017-04-28] MEDS ORDERED: PARO10TA PO (08:10)
[2017-04-28] MEDS ORDERED: MILK300C PO (08:10)
[2017-04-28] MEDS ORDERED: METO1TAB31 PO (08:10)
[2017-04-28] MEDS ORDERED: ASCO500T3 PO (08:10)
[2017-04-28] MEDS ORDERED: CEFTRIAXONE SOD INJ 1 GM ADDVIAL IV STA (08:15)
[2017-04-28 08:16] LABS: BUN/CREATININE RATIO 9.6 (10-20); CALCIUM 8.8 mg/dl (8.5-10.1); CREATININE 0.85 mg/dl (0.60-1.20); POTASSIUM 3.5 mmol/L (3.5-5.1)
[2017-04-28 08:23] LABS: ALB/GLOB RATIO 1.1 (0.9-2)
[2017-04-28] MEDS ORDERED: ACETAMINOPHEN 325 MG TAB PO PRN (09:45)
[2017-04-28] MEDS ORDERED: ONDANSETRON INJ 2 MG/ML 2 ML VIAL IV PRN (09:45)
[2017-04-28 10:51] VITALS: BP 137/82; PULSE 82; TEMP 36.9; O2SAT 93; Ht 157.5 cm; Wt 73.0 kg
[2017-04-28] MEDS: SODIUM CHLORIDE 0.9% 1000ML 1,000 ML IV SCH ×2 (11:09→19:29)
--- NOTE | 2017-04-28 12:14 | History and Physical ---
History & Physical Date & Time of Service: Apr 28, 2017 ~ 09 Chief Complaint: Right Flank Pain, Burning with Urination Primary Care Physician: Cathy Gardiner M.D. History of Present Illness 66 year old female who presents to the ER with right flank pain and burning with urination. Patient reports she has had chronic right sided low back pain for the past 2 months. She reports a couple of days ago she developed a different pain that was located higher up. She also has had burning with urination and urinary hesitancy. Yesterday she developed hematuria. She reports she was awoken out of sleep due to the severe back pain. She denies fever and chills. She had some mild nausea but denies vomiting. No abdominal pain or diarrhea. She denies chest pain and shortness of breath. No lightheadedness, dizziness, diaphoresis, or syncopal events. In the ED, patient's U/A is suggestive of UTI. CT abd/pelvis is negative for renal stone. WBC 16K. Patient was given IV Rocephin and IVF. She required IV Toradol and IV morphine for pain control. Past Medical/Surgical History Medical Problems: (1) Chronic neck pain Status: Chronic (2) Dyslipidemia Status: Chronic (3) GERD (gastroesophageal reflux disease) Status: Chronic (4) HTN (hypertension) Status: Chronic (5) Panic disorder Status: Chronic Surgical Problems: (1) History of appendectomy Status: Resolved (2) History of carpal tunnel surgery Status: Resolved (3) History of cholecystectomy Status: Resolved (4) History of hysterectomy Status: Resolved (5) S/P cervical spinal fusion Status: Resolved Family History Cancer Hypertension Stroke Social History Smoking Status: Former Smoker Alcohol Use: none Multi-Drug Resistant Organisms History of MDRO: No Allergies Coded Allergies: Propoxyphene (Verified Allergy, Intermediate, TACHYCARDIA, 04/28/17) Home Medications Scheduled Amlodipine Besylate (Amlodipine Besylate), 5 MG PO QAM Ascorbic Acid (Vitamin C), 500 MG PO DAILY Aspirin (Aspirin EC Low Dose), 81 MG PO QAM Ciprofloxacin Hcl (Cipro), 500 MG PO BID Hctz/Losartan (Hyzaar 12.5MG/50MG), 1 TAB PO DAILY Linaclotide (Linzess), 145 MCG PO DAILY Metoprolol Succinate (Toprol Xl), 25 MG PO DAILY Milk Thistle (Silybum Marianum (Milk Thistle), 350 MG PO DAILY [place]-3 Fatty Acids (Fish Oil), 1 CAP PO DAILY Omeprazole (Prilosec), 40 MG PO DAILY Paroxetine Hcl (Paxil), 10 MG PO DAILY Vitamin E (Vitamin E 400 Iu), 400 INTER.UNIT PO DAILY Scheduled PRN Oxycodone Hcl (Oxycodone Hcl), 1 TAB PO QID PRN for Pain Review of Systems ROS per HPI, all other systems reviewed and negative Physical Exam Vital Signs Date Time Temp Pulse Resp B/P (MAP) Pulse Ox O2 Delivery O2 Flow Rate FiO2 04/28/17 10:51 36.9 82 16 137/82 93 Room Air 04/28/17 10:43 61 16 103/62 95 04/28/17 09:35 64 22 89 04/28/17 09:05 65 14 90 04/28/17 08:35 63 13 96 04/28/17 08:30 60 13 93 04/28/17 08:29 60 16 128/53 93 Room Air 04/28/17 08:28 128/53 04/28/17 08:00 71 17 92 04/28/17 07:30 69 19 92 04/28/17 07:25 71 04/28/17 07:18 131/63 04/28/17 06:56 36.8 74 16 131/71 92 Room Air General Appearance: no apparent distress Head: normocephalic Eyes: normal inspection, sclerae normal ENT: hearing grossly normal Neck: supple, no JVD Respiratory/Chest: lungs clear, normal breath sounds, no respiratory distress Cardiovascular: regular rate, rhythm, no edema, normal peripheral pulses Abdomen/GI: normal bowel sounds, non tender, soft Back: + right CVA tenderness Extremities/Musculoskelatal: normal inspection, no calf tenderness Neurologic/Psych: no motor/sensory deficits, alert, normal mood/affect, oriented x 3 Skin: normal color, warm/dry Diagnostics Laboratory Results Results Past 24 Hours Test 04/28/17 07:10 04/28/17 07:42 Range/Units Urine Color RED Urine Appearance CLOUDY CLEAR Urine pH 5.0 4.5-7.5 Urine Specific [place] <= 1.005 1.000-1.030 Urine Protein 2+ NEG Urine Glucose (UA) NEG NEG Urine Ketones NEG NEG Urine Occult Blood 3+ NEG Urine Nitrite NEG NEG Urine Bilirubin NEG NEG Urine Urobilinogen NEG NEG Urine Leukocyte Esterase MODERATE NEG Urine RBC >30 0-4 /hpf Urine WBC >30 0-5 /hpf Urine Epithelial Cells 5-10 0-5 /lpf Urine Bacteria NEG NEG White Blood Count 16.25 4.8-10.8 K/uL Red Blood Count 4.43 4.2-5.4 M/uL Hemoglobin 13.5 12.0-16.0 g/dL Hematocrit 39.0 37-47 % Mean Corpuscular Volume 88.0 80-100 fL Mean Corpuscular Hemoglobin 30.5 25-34 pg Mean Corpuscular Hemoglobin Concent 34.6 32-36 g/dl RDW Standard Deviation 40.4 36.4-46.3 fL RDW Coefficient of Variation 12.6 11.5-14.5 % Platelet Count 206 130-400 K/uL Mean Platelet Volume 9.3 7.4-10.4 fL Prothrombin Time 10.6 9.0-12.0 SECONDS Prothromb Time International Ratio 1.0 0.9-1.1 Activated Partial Thromboplast Time 27.1 21.0-31.0 SECONDS Partial Thromboplastin Ratio 1.0 Sodium Level 142 136-145 mmol/L Potassium Level 3.5 3.5-5.1 mmol/L Chloride Level 104 98-107 mmol/L Carbon Dioxide Level 31 21-32 mmol/L Anion Gap 7.0 3-11 mmol/L Blood Urea Nitrogen 8 7-18 mg/dl Creatinine 0.85 0.60-1.20 mg/dl Est Creatinine Clear Calc Drug Dose 61.7 ml/min Estimated GFR () 83.3 Estimated GFR (Non- 71.9 BUN/Creatinine Ratio 9.6 10-20 Random Glucose 97 70-99 mg/dl Calcium Level 8.8 8.5-10.1 mg/dl Total Bilirubin 0.4 0.2-1 mg/dl Aspartate Amino Transf (AST/SGOT) 19 15-37 U/L Alanine Aminotransferase (ALT/SGPT) 21 12-78 U/L Alkaline Phosphatase 76 45-117 U/L Total Protein 6.9 6.4-8.2 gm/dl Albumin 3.6 3.4-5.0 gm/dl Globulin 3.3 2.5-4.0 gm/dl Albumin/Globulin Ratio 1.1 0.9-2 Lipase 135 73-393 U/L Microbiology Results 04/28/17 Urine Culture, Received Pending Diagnostic Radiology CT ABD/PELVIS IMPRESSION: 1. No evidence for an obstructing urinary tract calculus. 2. Slight wall thickening of the sigmoid consistent with mild colitis versus technical lack of distention. 3. Study is otherwise negative post cholecystectomy and appendectomy. Impression Assessment and Plan PYELONEPHRITIS - admit to med/surg - patient presenting with right flank pain, dysuria, and urinary hesitancy x 2 days; U/A in the ED suggestive of UTI, CT abd/pelvis negative for stone; exam and history consistent with pyelonephritis - noted CT questioning mild colitis however patient does not have any GI symptoms - WBC 16K, no other signs of sepsis - s/p Rocephin in the ED, will continue with - IVF - urine cultures obtained - hematuria likely due to pyelonephritis, could obtain outpatient U/A after treatment to ensure resolution HTN - BP controlled, continue amlodipine, losartan, and metoprolol - will hold HCTZ while giving IVF for UTI ANXIETY - continue Paroxetine GERD - continue PPI CHRONIC BACK PAIN - continue PRN oxycodone DVT PROPHYLAXIS - SCDs due to hematuria DISPO - In my clinical judgment this beneficiary meets acute admission criteria, established by [facility], that includes being hospitalized through two midnights. Attending Pt was seen and examined. Agreed with [place]ka VIZCARRA physical exam, assessment and plan. Continue to have right flank pain.continue rcephin IV. continue pain control. Urine cx pending. continue monitor WBC. will change abx to PO once we have sensitivity. Lab, imaging reviewed. Please refer to [place] documentation for other problems. Chasidy Blackwood MD Advanced Directives Existing Living Will: No Existing Power of Tank Cleaner: No VTE Prophylaxis VTE Risk Assessment Done? Y/N: Yes Risk Level: Moderate
[2017-04-28] MEDS ORDERED: OXY/15 PO (12:36)
[2017-04-28] MEDS: OXYCODONE HCL IR 5 MG TAB (IMMEDIATE RELEASE) PO PRN ×2 (14:24→20:31)
[2017-04-28] MEDS: KETOROLAC TROMETHAMINE 15 MG/ML VIAL IV PRN ×2 (15:24→21:33)
[2017-04-28 15:30] VITALS: BP 94/44; PULSE 54; TEMP 36.7; O2SAT 91
[2017-04-28 15:32] VITALS: BP 120/65
[2017-04-28] MEDS ORDERED: ZOLPIDEM TARTRATE 5 MG TAB PO PRN (20:15)
[2017-04-28 23:35] VITALS: BP 105/56; PULSE 62; TEMP 36.5; O2SAT 93
[2017-04-29] MEDS: OXYCODONE HCL IR 5 MG TAB (IMMEDIATE RELEASE) PO PRN ×2 (02:32→08:50)
[2017-04-29] MEDS: SODIUM CHLORIDE 0.9% 1000ML 1,000 ML IV SCH (05:06)
[2017-04-29] MEDS: KETOROLAC TROMETHAMINE 15 MG/ML VIAL IV PRN (06:00)
[2017-04-29 07:10] VITALS: BP 118/62; PULSE 56; TEMP 36.9; O2SAT 90
[2017-04-29 07:24] LABS: BUN/CREATININE RATIO 10.9 (10-20); CALCIUM 8.1 mg/dl (8.5-10.1); CREATININE 0.85 mg/dl (0.60-1.20); POTASSIUM 3.8 mmol/L (3.5-5.1)
[2017-04-29] MEDS ORDERED: CEFTRIAXONE SOD INJ 1 GM in DEXTROSE 5% ADD-VANTAGE 50ML 50 ML IV SCH (08:00)
[2017-04-29 08:16] LABS: HEMATOCRIT 38.4 % (37-47); MEAN CELL VOLUME 87.3 fL (80-100); MEAN CORPUSCULAR HEMOGLOBIN 30.9 pg (25-34); MEAN CORPUSCULAR HGB CONC 35.4 g/dl (32-36); MEAN PLATELET VOLUME 9.9 fL (7.4-10.4); PLATELET COUNT 199 K/uL (130-400); WHITE BLOOD COUNT 10.43 K/uL (4.8-10.8)
[2017-04-29 08:57] VITALS: BP 151/77; PULSE 64
[2017-04-29] MEDS ORDERED: OMEGA-3 (PURIFIED FISH OIL) 1 GM CAP PO SCH (09:00)
[2017-04-29] MEDS ORDERED: TOCOPHERYL, DL-ALPHA 400 INTER.UNIT CAP PO SCH (09:00)
[2017-04-29] MEDS ORDERED: METOPROLOL SUCC 25MG EXT REL TAB PO SCH (09:00)
[2017-04-29] MEDS ORDERED: AMLODIPINE BESYLATE 5 MG TAB PO SCH (09:00)
[2017-04-29] MEDS ORDERED: PAROXETINE 20 MG TAB PO SCH (09:00)
[2017-04-29] MEDS ORDERED: ASPIRIN 81 MG ECTAB PO SCH (09:00)
[2017-04-29] MEDS ORDERED: ASCORBIC ACID 500 MG TAB PO SCH (09:00)
[2017-04-29] MEDS ORDERED: PANTOprazole SOD 40 MG TAB PO SCH (09:00)
[2017-04-29] MEDS ORDERED: LOSARTAN POTASSIUM 50 MG TAB PO SCH (09:00)
[2017-04-29] MEDS ORDERED: NURSING VERBAL MED ORDER ONE (09:30)
[2017-04-29 11:13] VITALS: O2SAT 94
[2017-04-29] MEDS ORDERED: LORAZEPAM 0.5 MG TAB PO PRN (14:15)
--- NOTE | 2017-04-29 16:27 | Progress Note ---
Medicine Progress Note Date & Time of Visit: Apr 29, 2017 at 09:22. Subjective Pt was seen and examined Sitting at the edge of the bed with no distress Pt said that the pain is slightly improved She wants to go home Pt said that her right flank pain seems to improve a little Denies any fever, palpitation, dizziness and SOB Objective Last 8 Hrs Date Time Temp Pulse Resp B/P (MAP) Pulse Ox O2 Delivery O2 Flow Rate FiO2 04/29/17 11:13 94 Room Air 04/29/17 08:57 64 151/77 (101) 04/29/17 07:25 Room Air Physical Exam: General- No acute distress Head- atraumatic Eyes- PERRL, EOMI ENT- oropharynx clear Neck- supple, no JVD Lungs- clear to auscultation Heart- regular rhythm Abdomen- normal bowel sounds, soft Lumbar- Right flank pain on palpation Extremities-no calf tenderness Neuro- alert, oriented x 3; PERRL, EOMI Skin- warm & dry Laboratory Results: Last 24 Hours Test 04/29/17 06:28 04/29/17 07:30 Sodium Level 142 mmol/L Potassium Level 3.8 mmol/L Chloride Level 107 mmol/L Carbon Dioxide Level 29 mmol/L Anion Gap 6.0 mmol/L Blood Urea Nitrogen 9 mg/dl Creatinine 0.85 mg/dl Est Creatinine Clear Calc Drug Dose 61.7 ml/min Estimated GFR () 83.3 Estimated GFR (Non- 71.9 BUN/Creatinine Ratio 10.9 Random Glucose 96 mg/dl Calcium Level 8.1 mg/dl White Blood Count 10.43 K/uL Red Blood Count 4.40 M/uL Hemoglobin 13.6 g/dL Hematocrit 38.4 % Mean Corpuscular Volume 87.3 fL Mean Corpuscular Hemoglobin 30.9 pg Mean Corpuscular Hemoglobin Concent 35.4 g/dl RDW Standard Deviation 40.2 fL RDW Coefficient of Variation 12.5 % Platelet Count 199 K/uL Mean Platelet Volume 9.9 fL Assessment & Plan PYELONEPHRITIS -Present with right flank pain - WBC on admission 16K - WBC today wnl - CT abdomen showed No evidence for an obstructing urinary tract calculus. Slight wall thickening of the sigmoid consistent with mild colitis versus technical lack of distention. - Urine cx grew ecoli, waiting for sensitivity - On day 2 rocephin IV -D/C IVF HTN - continue amlodipine, losartan, and metoprolol - Resume HCTZ in am ANXIETY - continue Paroxetine - Ativanx1 given GERD - continue PPI CHRONIC BACK PAIN - continue PRN oxycodone DVT PROPHYLAXIS - SCDs due to hematuria CODE STATUS FULL CODE Current Inpatient Medications: Current Inpatient Medications Medications (Trade) Dose Ordered Sig/Silverio Route Start Time Stop Time Status Last Admin Dose Admin Acetaminophen (Tylenol Tab) 650 mg Q4H PRN PO 04/28/17 09:45 05/28/17 09:44 Ondansetron HCl (Zofran Inj) 4 mg Q6H PRN IV 04/28/17 09:45 05/28/17 09:44 Ceftriaxone Sodium 1 gm/ Dextrose 50 ml @ 100 mls/hr Q24H IV 04/29/17 08:00 05/08/17 07:59 04/29/17 07:25 100 MLS/HR Ketorolac Tromethamine (Toradol Inj) 15 mg Q6H PRN IV 04/28/17 09:45 05/03/17 09:44 04/29/17 06:00 15 MG Amlodipine Besylate (Norvasc Tab) 5 mg QAM PO 04/29/17 09:00 05/29/17 08:59 04/29/17 08:52 5 MG Ascorbic Acid (Vitamin C Tab) 500 mg DAILY PO 04/29/17 09:00 05/29/17 08:59 04/29/17 08:51 500 MG Aspirin (Ecotrin Tab) 81 mg QAM PO 04/29/17 09:00 05/29/17 08:59 04/29/17 08:50 81 MG Metoprolol Succinate (Toprol Xl Tab) 25 mg DAILY PO 04/29/17 09:00 05/29/17 08:59 04/29/17 08:51 25 MG Oxycodone HCl (Roxicodone Immediate Rel Tab) 15 mg QID PRN PO 04/28/17 09:45 05/12/17 09:44 04/29/17 08:50 15 MG Paroxetine HCl (pAXil TAB) 10 mg DAILY PO 04/29/17 09:00 05/29/17 08:59 04/29/17 08:52 10 MG [id number] Acetate (Vitamin E Cap) 400 interunit DAILY PO 04/29/17 09:00 05/29/17 08:59 04/29/17 08:51 400 INTERUNIT Miscellaneous Information (Order Awaiting Action) 1 ea QS N/A 04/28/17 16:00 05/28/17 15:59 Fish Oil ([place]-3 (Purified Fish Oil) Cap) 1 gm DAILY PO 04/29/17 09:00 05/29/17 08:59 04/29/17 08:52 1 GM Pantoprazole Sodium (Protonix Tab) 40 mg QAM PO 04/29/17 09:00 05/29/17 08:59 04/29/17 08:51 40 MG Losartan Potassium (coZAAR TAB) 50 mg QAM PO 04/29/17 09:00 05/29/17 08:59 04/29/17 08:52 50 MG Lorazepam (Ativan Tab) 0.25 mg ONE PRN PO 04/29/17 14:15 04/29/17 23:59
--- NOTE | 2017-04-29 16:36 | Progress Note ---
Progress Note Date of Service Apr 29, 2017. Progress Note Nurse called to inform that pt wants to sign out AMA I called micro lab to check if sensitivity for the urine cx resolved Micro lab said that sensitivity will be resolved tomorrow I reviewed her chart to check if she had any urine cx in the past to check for sensitivity I could not get any sensitivity result I went to talk to her room to try to convince her to stay when I arrived on the floor Nurse said that pt just left About 45 minutes later i called her house phone No one answered, left VM I will try to call pt later to let her know that i will call for abx for her to take Will follow up on urine sensitivity
--- NOTE | 2017-04-29 21:32 | Discharge Instructions ---
Discharge Instructions Date of Service Apr 29, 2017. Admission Reason for Admission: Pyelonephritis Discharge Discharge Diagnosis / Problem: Pyelonephritis Discharge Goals Goal(s): Decrease discomfort, Improve function, Improve disease control Activity Recommendations Activity Limitations: resume your previous activity (as tolerated) . Instructions / Follow-Up Instructions / Follow-Up Patient signed out AMA Called her home phone and left message for her to pick antibiotic at her pharmacy tomorrow Current Hospital Diet Patient's current hospital diet: AHA Diet (Heart Healthy) Discharge Diet Recommended Diet: AHA Diet (Heart Healthy) Pending Studies Studies pending at discharge: yes List of pending studies: Urine cx Medical Emergencies . Who to Call and When: Medical Emergencies: If at any time you feel your situation is an emergency, please call 911 immediately. . Non-Emergent Contact Non-Emergency issues call your: Primary Care Provider Call Non-Emergent contact if: you have a fever . . "Provider Documentation" section prepared by Chasidy Blackwood. . VTE Core Measure Inpt VTE Proph given/why not?: SCD's
[2017-04-30] MEDS ORDERED: CIPR-255 PO (10:17)
--- NOTE | 2017-05-02 00:35 | Discharge Summary ---
Discharge Summary Date of Service May 02, 2017. Discharge Summary Admission Date: Apr 28, 2017 at 09:43 Discharge Date: Apr 29, 2017 Discharge Disposition: Home Principal Diagnosis: PYELONEPHRITIS Secondary Diagnoses/Problems: HTN Anxiety Chronic back pain GERD Procedures: ABD/PELVIS WITHOUT FOR STONE CT DOSE: 964.30 mGycm HISTORY: Flank pain EVALUATE FLANK PAIN/HEMATURIA TECHNIQUE: Multiaxial CT images of the abdomen and pelvis were performed without the use of intravenous and oral contrast according to the standard department stone protocol. A dose lowering technique was utilized adhering to the principles of ALARA. COMPARISON STUDY: 03/24/2017 FINDINGS: Lung bases are clear. Mild fatty infiltration liver. Prior cholecystectomy. Chronic post operative biliary ductal prominence unchanged. Pancreas is unremarkable. Kidneys negative for calcification or hydronephrosis. Small cyst inferior pole right kidney unchanged. No evidence for renal hydronephrosis. Bowel pattern is considered nonobstructive. Prior appendectomy. Bladder is midline. Suggestion of slight degree of wall thickening of the sigmoid versus technical artifact due to lack of distention. Bladder is midline. There are no contained calcifications. IMPRESSION: 1. No evidence for an obstructing urinary tract calculus. 2. Slight wall thickening of the sigmoid consistent with mild colitis versus technical lack of distention. 2. Study is otherwise negative post cholecystectomy and appendectomy. The above report was generated using voice recognition software. It may contain grammatical, syntax or spelling errors. Electronically signed by: Eliezer Carrington M.D. 04/28/2017 8:05 AM Dictated Date/Time: 04/28/2017 7:59 AM Medication Reconciliation New Medications: Ciprofloxacin Hcl (Cipro) 500 Mg Tab 500 MG PO BID for 7 Days, #14 TAB Continued Medications: Amlodipine Besylate (Amlodipine Besylate) 5 Mg Tab 5 MG PO QAM for 30 Days, #30 TAB 1 Refill Ascorbic Acid (Vitamin C) 500 Mg Tab 500 MG PO DAILY Aspirin (Aspirin EC Low Dose) 81 Mg Ectab 81 MG PO QAM for 30 Days, #30 TAB 1 Refill with full stomach Hctz/Losartan (Hyzaar 12.5MG/50MG) Tab 1 TAB PO DAILY, TAB Linaclotide (Linzess) 145 Mcg Cap 145 MCG PO DAILY Metoprolol Succinate (Toprol Xl) 25 Mg Tab 25 MG PO DAILY, #30 TAB Milk Thistle (Silybum Marianum (Milk Thistle) 300 Mg Cap 350 MG PO DAILY [place]-3 Fatty Acids (Fish Oil) 1 Cap Cap 1 CAP PO DAILY Omeprazole (Prilosec) 20 Mg Cap 40 MG PO DAILY, #60 Oxycodone Hcl (Oxycodone Hcl) 15 Mg Tab 1 TAB PO QID PRN for Pain for 30 Days, #120 TAB Paroxetine Hcl (Paxil) 10 Mg Tab 10 MG PO DAILY, TAB Vitamin E (Vitamin E 400 Iu) 400 Unit Cap 400 INTER.UNIT PO DAILY, CAP Admission Information HPI (per Admitting provider): 66 year old female who presents to the ER with right flank pain and burning with urination. Patient reports she has had chronic right sided low back pain for the past 2 months. She reports a couple of days ago she developed a different pain that was located higher up. She also has had burning with urination and urinary hesitancy. Yesterday she developed hematuria. She reports she was awoken out of sleep due to the severe back pain. She denies fever and chills. She had some mild nausea but denies vomiting. No abdominal pain or diarrhea. She denies chest pain and shortness of breath. No lightheadedness, dizziness, diaphoresis, or syncopal events. In the ED, patient's U/A is suggestive of UTI. CT abd/pelvis is negative for renal stone. WBC 16K. Patient was given IV Rocephin and IVF. She required IV Toradol and IV morphine for pain control. Physical Exam (per Admitting): General Appearance: no apparent distress Head: normocephalic Eyes: normal inspection, sclerae normal ENT: hearing grossly normal Neck: supple, no JVD Respiratory/Chest: lungs clear, normal breath sounds, no respiratory distress Cardiovascular: regular rate, rhythm, no edema, normal peripheral pulses Abdomen/GI: normal bowel sounds, non tender, soft Back: + right CVA tenderness Extremities/Musculoskelatal: normal inspection, no calf tenderness Neurologic/Psych: no motor/sensory deficits, alert, normal mood/affect, oriented x 3 Skin: normal color, warm/dry Hospital Course PYELONEPHRITIS -Present with right flank pain - WBC on admission 16K - WBC today wnl - CT abdomen showed No evidence for an obstructing urinary tract calculus. Slight wall thickening of the sigmoid consistent with mild colitis versus technical lack of distention. - Urine cx grew ecoli, waiting for sensitivity - On day 2 rocephin IV -D/C IVF HTN - continue amlodipine, losartan, and metoprolol - Resume HCTZ in am ANXIETY - continue Paroxetine - Ativanx1 given GERD - continue PPI CHRONIC BACK PAIN - continue PRN oxycodone DVT PROPHYLAXIS - SCDs due to hematuria CODE STATUS FULL CODE Total time spent on discharge = 35 minutes This includes examination of the patient, discharge planning, medication reconciliation, and communication with other providers. Discharge Instructions Discharge Instructions Date of Service Apr 29, 2017. Admission Reason for Admission: Pyelonephritis Discharge Discharge Diagnosis / Problem: Pyelonephritis Discharge Goals Goal(s): Decrease discomfort, Improve function, Improve disease control Activity Recommendations Activity Limitations: resume your previous activity (as tolerated) . Instructions / Follow-Up Instructions / Follow-Up Patient signed out AMParul Called her home phone and left message for her to pick antibiotic at her pharmacy tomorrow Current Hospital Diet Patient's current hospital diet: AHA Diet (Heart Healthy) Discharge Diet Recommended Diet: AHA Diet (Heart Healthy) Pending Studies Studies pending at discharge: yes List of pending studies: Urine cx Medical Emergencies . Who to Call and When: Medical Emergencies: If at any time you feel your situation is an emergency, please call 911 immediately. . Non-Emergent Contact Non-Emergency issues call your: Primary Care Provider Call Non-Emergent contact if: you have a fever . . "Provider Documentation" section prepared by Chasidy Blackwood. . VTE Core Measure Inpt VTE Proph given/why not?: SCD's Signed: Signed: The status of this report is Draft * If report status is Draft, the document has not been finalized by the responsible provider. Additional Copies To Cathy Gadriner M.D.
== END 2017-04-29 15:30 | disposition left against medical advice (07) | DRG 690 ==
LOC: EDBD 06:47 → C.EDB 06:49 → C.MSN 09:43 → ENRESERV 09:52
PROVIDERS: ADMIT Internal Medicine; ATTEND Internal Medicine
DX: N12 Tubulo-interstitial nephritis, not specified as acute or chronic (principal); F33.9 Major depressive disorder, recurrent, unspecified; K21.9 Gastro-esophageal reflux disease without esophagitis; I10 Essential (primary) hypertension; F41.0 Panic disorder [episodic paroxysmal anxiety]; G89.29 Other chronic pain; M54.9 Dorsalgia, unspecified; Z90.49 Acquired absence of other specified parts of digestive tract; Z79.82 Long term (current) use of aspirin; Z80.9 Family history of malignant neoplasm, unspecified; Z82.3 Family history of stroke